=== PATIENT | male | born 1965 | race Caucasian/White ===

== ENCOUNTER 2016-02-20 11:55 | Emergency (ER) | payer OTHER ==
[2016-02-20] MEDS ORDERED: ONDANSETRON 4MG/2ML VIAL (J2405) As Ordered ONE (12:52)
[2016-02-20 13:24] LABS: BASO # 0.1 K/mm3 (0.0-0.2); BASO % 0.5 % (0.0-1.0); EOS # 4.2 K/mm3 (0.0-0.50); EOS % 36.6 % (0.0-3.0); LARGE UNSTAINED CELL # 0.2 K/mm3 (0.0-0.4); LARGE UNSTAINED CELL % 1.4 % (0.0-4.0); LYMPH # 2.1 K/mm3 (1.5-4.5); LYMPH % 18.5 % (24.0-44.0); MEAN CORPUSCULAR HEMOGLOBIN 30.1 pg (27.0-33.0); MEAN CORPUSCULAR HGB CONC 33.8 g/dl (32.0-36.5); MONO # 0.5 K/mm3 (0.0-0.8); MONO % 4.2 % (0.0-5.0); NEUTROPHILS # 4.4 K/mm3 (1.8-7.7); NEUTROPHILS % 38.8 % (36.0-66.0); PLATELET COUNT, AUTOMATED 291 k/mm3 (150-450); WHITE BLOOD COUNT 11.4 K/mm3 (4.0-10.0)
[2016-02-20 13:30] LABS: ALBUMIN 3.7 GM/DL (3.2-5.2); ALBUMIN/GLOBULIN RATIO 1.09 (1.00-1.93); ALKALINE PHOSPHATASE 134 U/L (45-117); ALT/SGPT 31 U/L (12-78); AMYLASE 51 U/L (25-115); ANION GAP 10 MEQ/L (8-16); AST/SGOT 27 U/L (15-37); BILIRUBIN,DIRECT 0.1 MG/DL (0.0-0.2); BILIRUBIN,TOTAL 0.9 MG/DL (0.2-1.0); BLOOD UREA NITROGEN 17 MG/DL (7-18); CARBON DIOXIDE LEVEL 22 MEQ/L (21-32); CHLORIDE LEVEL 111 MEQ/L (98-107); CREATININE FOR GFR 0.88 MG/DL (0.70-1.30); GLOMERULAR FILTRATION RATE > 60.0 (>56); GLUCOSE, FASTING 123 MG/DL (70-105); POTASSIUM SERUM 4.5 MEQ/L (3.5-5.1); SODIUM LEVEL 143 MEQ/L (136-145); TOTAL PROTEIN 7.1 GM/DL (6.4-8.2)
[2016-02-20] MEDS ORDERED: ISOVUE-370 76% 100ML VIAL (Q9967) As Ordered ONE (13:54)
--- NOTE | 2016-02-20 14:58 | REP ---
Clinical: Lower abdominal pain. Technique: Axial contrast enhanced images from the lung bases to the pubic symphysis using 100 ml Isovue 370 intravenous contrast material with coronal and sagittal re-formations. Findings: Fatty infiltration to the liver is appreciated without focal hepatic lesion identified. Spleen, pancreas, gallbladder, bilateral adrenal glands and kidneys are normal. The enteric system is without obstruction or acute inflammatory process. Scattered diverticula noted without acute diverticulitis. Normal terminal ileum and appendix identified in the right lower quadrant. Pelvis demonstrates normal bladder and age appropriate prostate/seminal vesicles. 2 cm fat containing periumbilical hernia noted. No ascites. No adenopathy. No free air. Abdominal aorta and vasculature normal. Musculoskeletal structures appear intact. Impression: No acute intra-abdominal or pelvic pathology appreciated. Fatty infiltration to the liver. Diverticula without acute diverticulitis. 2 cm fat containing periumbilical hernia. Signed by Jeffrey Sofia MD 02/20/2016 02:49 P
--- NOTE | 2016-02-20 18:03 | EDDOCDS ---
Physician Documentation [facility] Name: Denys Farfan Age: 50 yrs Sex: Male : 1965 Arrival Date: 02/20/2016 Time: 11:55 Bed TR8 Private MD: Michelle Stauffer A.NFrancisco Disposition: 02/20/16 17:06 Discharged to Home/Self Care. Impression: Nausea and vomiting, Diarrhea, unspecified. - Condition is Stable. - Discharge Instructions: Food Choices to Help Relieve Diarrhea, Adult, Diarrhea, Nausea and Vomiting. - Medication Reconciliation, Local Pharmacy Hours form. - Follow up: Michelle Stauffer; When: 2 - 3 days; Reason: Continuance of care. Follow up: Emergency Department; When: As needed; Reason: Worsening of conditions. - Problem is an ongoing problem. - Symptoms have improved. Historical: - Allergies: DONEPEZIL; - Home Meds: 1. ibuprofen 800 mg Oral tab 1 tab 3 times per day 2. metformin 1,000 mg Oral tab 1 tab 2 times per day 3. escitalopram oxalate 10 mg oral tab 1 tab once daily 4. Invokana 100 mg oral tab 1 tab once daily 5. tizanidine 4 mg oral cap 1 cap as needed 6. testerone gel 50mg daily 7. tanzeum 30mg weekly - PMHx: Diabetes - NIDDM: controlled; Jamil; - PSHx: left leg vein removal; bilateral inguinal hernia repair; - Social history: Smoking status: Patient/guardian denies using No barriers to communication noted, The patient speaks fluent Ecuadorean. - Family history: Not pertinent. - : The pt / caregiver states he / she is not on anticoagulants. Home medication list is obtained from the patient. - Exposure Risk Screening:: None identified. Vital Signs: 02/19 11:56 BP 110 / 70; Pulse 84; Resp 18 S; Temp 98.0(O); Pulse Ox 99% on R/A; Weight 89.36 kg / dd6 197.01 lbs (R); Height 5 ft. 11 in. (180.34 cm) (R); 17:18 BP 107 / 63; Pulse 66; Resp 20; Temp 97.1; Pulse Ox 96% ; Pain 0/10; jam1 11:56 Body Mass Index 27.48 (89.36 kg, 180.34 cm) dd6 MDM: 12:49 NS 0.9% 1000 ml IV at bolus once ordered. dk1 12:49 Ondansetron 4 mg IVP once ordered. dk1 12:49 Undress patient appropriately for examination ordered. dk1 12:49 Amylase Ordered. EDMS 12:49 Basic Metabolic Profile Ordered. EDMS 12:49 CBC with Diff Ordered. EDMS 12:49 Lipase Ordered. EDMS 12:49 Liver Profile Ordered. EDMS 12:51 NOTHING BY MOUTH+DIET ordered. EDMS 12:51 CT ABD & PELVIS: IV Contrast Only Ordered. EDMS 12:51 GASTROINTESTINAL (GI) PANEL Ordered. EDMS 14:06 [facility] Payment Agreement was scanned into [employer] and attached to record. jp5 14:06 Financial registration complete. jp5 15:04 Basic Metabolic Profile Reviewed. dk1 15:04 CBC with Diff Reviewed. dk1 15:04 Liver Profile Reviewed. dk1 15:04 Amylase Reviewed. dk1 15:04 Lipase Reviewed. dk1 17:04 CT ABD & PELVIS: IV Contrast Only Reviewed. dk1 Administered Medications: 13:03 Drug: NS 0.9% 1000 ml [sodium chloride 0.9 % intravenous solution] Route: IV; Rate: kr3 bolus; Site: left hand; 13:57 Follow up: IV Status: Completed infusion; IV Intake: 1000ml kr3 13:03 Not Given (Patient Refused): Ondansetron 4 mg IVP once kr3 Signatures: Dispatcher [facility] EDCA Yasmeen Kent RN RN dls Robie, Kathleen, RN RN kr3 Rosalio Wilson PA-C PA-C dk1 Yanelis MartinezRN RN [facility] Mahad Soliz jp5 The chart was reviewed and I authenticate all verbal orders and agree with the evaluation and treatment provided.Corrections: (The following items were deleted from the chart) 12:51 12:49 GASTROINTESTINAL (GI) PANEL+KANDACE ordered. EDMS EDMS Attachments: 14:06 [facility] Payment Agreement jp5 MTDD
--- NOTE | 2016-02-20 18:03 | EDDOCDS ---
Nurse's Notes [facility] Name: Denys Farfan Age: 50 yrs Sex: Male : 1965 Arrival Date: 02/20/2016 Time: 11:55 Bed TR8 Private MD: Michelle Stauffer A.N.P. Diagnosis: Nausea and vomiting;Diarrhea, unspecified Presentation: 02/19 12:00 Presenting complaint: Patient states: Pt presents with vomiting and diarrhea x 3 weeks dls vomiting improved but non stop diarrhea pt is diabetic. Adult Sepsis Screening: The patient does not have new or worsening altered mentation. Patient's respiratory rate is less than 22. Systolic blood pressure is greater than 100. Patient has a qSOFA score of 0- Negative Sepsis Screen. Suicide/Homicide risk assessment- the patient denies having any suicidal and/or homicidal ideations and does not present with any other emotional, behavioral or mental health complaints. Status: Patient is not a flight line service attendant or dependent. Transition of care: patient was not received from another setting of care. 12:00 Acuity: NAHUM Level 3 dls 12:00 Method Of Arrival: Walkin/Carried/Asstd dls Triage Assessment: 12:06 General: Appears uncomfortable, well developed, well nourished, Behavior is dls cooperative. Pain: Denies pain. HIV screening NA for this visit Offered previously. Historical: - Allergies: DONEPEZIL; - Home Meds: 1. ibuprofen 800 mg Oral tab 1 tab 3 times per day 2. metformin 1,000 mg Oral tab 1 tab 2 times per day 3. escitalopram oxalate 10 mg oral tab 1 tab once daily 4. Invokana 100 mg oral tab 1 tab once daily 5. tizanidine 4 mg oral cap 1 cap as needed 6. testerone gel 50mg daily 7. tanzeum 30mg weekly - PMHx: Diabetes - NIDDM: controlled; [place]; - PSHx: left leg vein removal; bilateral inguinal hernia repair; - Social history: Smoking status: Patient/guardian denies using No barriers to communication noted, The patient speaks fluent Argentine. - Family history: Not pertinent. - : The pt / caregiver states he / she is not on anticoagulants. Home medication list is obtained from the patient. - Exposure Risk Screening:: None identified. Screenin:03 Screening information is obtained from the patient. Fall risk: No risks identified. kr3 Assistance ADL's: requires no assistance with activities of daily living. Abuse/DV Screen: The patient / caregiver reports he/she is: not in a situation that causes fear, pain or injury. Nutritional screening: No deficits noted. Advance Directives: Currently, there is no health care proxy. home support is adequate. Assessment: 13:03 Reassessment: Patient appears in no apparent distress at this time. Pain: Denies pain. kr3 GI: Abdomen is non- distended Bowel sounds present X 4 quads. Abd is soft and non tender X 4 quads. Reports diarrhea, Denies nausea, vomiting. Derm: Skin is normal. 14:04 Reassessment: Patient appears in no apparent distress at this time. Neurological: No kr3 deficits noted. Respiratory: Respiratory effort is even, unlabored. GI: Reports unable to give stool spec, reports has only had 4 crackers today. 15:09 General: Appears in no apparent distress, comfortable, Behavior is appropriate for age, cj cooperative, denies pain, boxed lunch provided per request, denies other needs, will continue to monitor. 15:20 General:. cjh 17:26 General: Appears in no apparent distress, comfortable, Behavior is appropriate for age, cj cooperative, reviewed discharge instructions, encouraged and offered questions, patient denies pain, denies distress, denies needs and declines offers of additional assistance with discharge. Vital Signs: 11:56 BP 110 / 70; Pulse 84; Resp 18 S; Temp 98.0(O); Pulse Ox 99% on R/A; Weight 89.36 kg dd6 (R); Height 5 ft. 11 in. (180.34 cm) (R); 17:18 BP 107 / 63; Pulse 66; Resp 20; Temp 97.1; Pulse Ox 96% ; Pain 0/10; jam1 11:56 Body Mass Index 27.48 (89.36 kg, 180.34 cm) dd6 Vitals: 11:56 Log In Time: February 20, 2016 at 11:54. dd6 ED Course: 11:56 Patient visited by Peterson Pacheco PCA. dd6 11:56 Michelle Stauffer is Private Physician. dd6 11:56 Patient moved to Waiting dd6 11:57 Patient moved to Pre RCE dd6 12:01 Triage Initiated dls 12:11 Patient moved to Triage 2 kcs 12:41 Rosalio Wilson PA-C is PHCP. dk1 12:41 Chely Fitzpatrick MD is Attending Physician. dk1 12:45 Patient visited by Rosalio Wilson PA-C. dk1 12:49 Patient moved to I4 / M4 ct3 13:02 Amylase Sent. kr3 13:02 Basic Metabolic Profile Sent. kr3 13:03 CBC with Diff Sent. kr3 13:03 Lipase Sent. kr3 13:03 Liver Profile Sent. kr3 13:03 Inserted saline lock: 20 gauge in left hand and blood collected. The patient tolerated kr3 the procedure well. 13:56 Patient visited by Dina Farris RN. kr3 13:57 The patient / caregiver is instructed regarding the plan of care and ED course. Patient kr3 has correct armband on for positive identification. Placed in gown. Bed in low position. Call light in reach. Side rails up X 1. 14:06 [facility] Payment Agreement was scanned into [employer] and attached to record. 5 14:13 Patient visited by Yanelis Burleson PCA. jam1 14:17 Patient name changed from Denys\S\S\S\Adolph\S\ to Denys\S\Donte\S\Adolph. EDMS 15:15 Diet tray given. PO fluids given. jam1 15:18 CT ABD & PELVIS: IV Contrast Only Returned. EDMS 15:30 Patient visited by Yanelis Martinez RN. [facility] 16:54 Patient has correct armband on for positive identification. Bed in low position. Call [facility] light in reach. Side rails up X 1. Adult w/ patient. Door closed. PT SITTING ON SIDE OF BED AT THIS TIME COULD NOT GET US A SPECIEMEN (bowl) at this time. 17:06 Michelle Stauffer is Referral Physician. dk1 17:26 Patient moved to 8 [facility] 17:26 No procedures done that require assistance. [facility] Administered Medications: 13:03 Drug: NS 0.9% 1000 ml [sodium chloride 0.9 % intravenous solution] Route: IV; Rate: kr3 bolus; Site: left hand; 13:57 Follow up: IV Status: Completed infusion; IV Intake: 1000ml kr3 13:03 Not Given (Patient Refused): Ondansetron 4 mg IVP once kr3 Intake: 13:57 IV: 1000.00ml; Total: 1000.00ml. kr3 Order Results: Lab Order: Amylase; SPEC'M 02/20/16 13:01 Test: AMYLASE; Value: 51; Range: 25-115; Units: U/L; Status: F Lab Order: Basic Metabolic Profile; SPEC'M 02/20/16 13:01 Test: GLUCOSE, FASTING; Value: 123; Range: 70-105; Abnormal: Above high normal; Units: MG/DL; Status: F Test: BLOOD UREA NITROGEN; Value: 17; Range: 7-18; Units: MG/DL; Status: F Test: CREATININE FOR GFR; Value: 0.88; Range: 0.70-1.30; Units: MG/DL; Status: F Test: GLOMERULAR FILTRATION RATE; Value: > 60.0; Range: >56; Status: F Test: SODIUM LEVEL; Value: 143; Range: 136-145; Units: MEQ/L; Status: F Test: POTASSIUM SERUM; Value: 4.5; Range: 3.5-5.1; Units: MEQ/L; Status: F Test: CHLORIDE LEVEL; Value: 111; Range: 98-107; Abnormal: Above high normal; Units: MEQ/L; Status: F Test: CARBON DIOXIDE LEVEL; Value: 22; Range: 21-32; Units: MEQ/L; Status: F Test: ANION GAP; Value: 10; Range: 8-16; Units: MEQ/L; Status: F Test: CALCIUM LEVEL; Value: 9.0; Range: 8.5-10.1; Units: MG/DL; Status: F Test Note: ; Units are mL/min/1.73 m2 Chronic Kidney Disease Staging per NKF: Stage I & II GFR >=60 Normal to Mildly Decreased Stage III GFR 30-59 Moderately Decreased Stage IV GFR 15-29 Severely Decreased Stage V GFR <15 Very Little GFR Left ESRD GFR <15 on FILER METAL PATTERNS Lab Order: CBC with Diff; SPEC'M 02/20/16 13:01 Test: WHITE BLOOD COUNT; Value: 11.4; Range: 4.0-10.0; Abnormal: Above high normal; Units: K/mm3; Status: F Test: RED BLOOD COUNT; Value: 5.09; Range: 4.30-6.10; Units: M/mm3; Status: F Test: HEMOGLOBIN; Value: 15.3; Range: 14.0-18.0; Units: g/dl; Status: F Test: HEMATOCRIT; Value: 45.3; Range: 42.0-52.0; Units: %; Status: F Test: MEAN CORPUSCULAR VOLUME; Value: 89.0; Range: 80.0-96.0; Units: fl; Status: F Test: MEAN CORPUSCULAR HEMOGLOBIN; Value: 30.1; Range: 27.0-33.0; Units: pg; Status: F Test: MEAN CORPUSCULAR HGB CONC; Value: 33.8; Range: 32.0-36.5; Units: g/dl; Status: F Test: RED CELL DISTRIBUTION WIDTH; Value: 14.0; Range: 11.5-14.5; Units: %; Status: F Test: PLATELET COUNT, AUTOMATED; Value: 291; Range: 150-450; Units: k/mm3; Status: F Test: NEUTROPHILS %; Value: 38.8; Range: 36.0-66.0; Units: %; Status: F Test: LYMPH %; Value: 18.5; Range: 24.0-44.0; Abnormal: Below low normal; Units: %; Status: F Test: MONO %; Value: 4.2; Range: 0.0-5.0; Units: %; Status: F Test: EOS %; Value: 36.6; Range: 0.0-3.0; Abnormal: Above high normal; Units: %; Status: F Test: BASO %; Value: 0.5; Range: 0.0-1.0; Units: %; Status: F Test: LARGE UNSTAINED CELL %; Value: 1.4; Range: 0.0-4.0; Units: %; Status: F Test: NEUTROPHILS #; Value: 4.4; Range: 1.8-7.7; Units: K/mm3; Status: F Test: LYMPH #; Value: 2.1; Range: 1.5-4.5; Units: K/mm3; Status: F Test: MONO #; Value: 0.5; Range: 0.0-0.8; Units: K/mm3; Status: F Test: EOS #; Value: 4.2; Range: 0.0-0.50; Abnormal: Above high normal; Units: K/mm3; Status: F Test: BASO #; Value: 0.1; Range: 0.0-0.2; Units: K/mm3; Status: F Test: LARGE UNSTAINED CELL #; Value: 0.2; Range: 0.0-0.4; Units: K/mm3; Status: F Lab Order: Lipase; SPEC'M 02/20/16 13:01 Test: LIPASE; Value: 163; Range: 73-393; Units: U/L; Status: F Lab Order: Liver Profile; SPEC'M 02/20/16 13:01 Test: AST/SGOT; Value: 27; Range: 15-37; Units: U/L; Status: F Test: ALT/SGPT; Value: 31; Range: 12-78; Units: U/L; Status: F Test: ALKALINE PHOSPHATASE; Value: 134; Range: 45-117; Abnormal: Above high normal; Units: U/L; Status: F Test: BILIRUBIN,TOTAL; Value: 0.9; Range: 0.2-1.0; Units: MG/DL; Status: F Test: BILIRUBIN,DIRECT; Value: 0.1; Range: 0.0-0.2; Units: MG/DL; Status: F Test: TOTAL PROTEIN; Value: 7.1; Range: 6.4-8.2; Units: GM/DL; Status: F Test: ALBUMIN; Value: 3.7; Range: 3.2-5.2; Units: GM/DL; Status: F Test: ALBUMIN/GLOBULIN RATIO; Value: 1.09; Range: 1.00-1.93; Status: F Radiology Order: CT ABD & PELVIS: IV Contrast Only Test: CT ABD & PELVIS: IV Contrast Only REASON FOR EXAMINATION: Diverticulitis; Clinical: Lower abdominal pain.; ; Technique: Axial contrast enhanced images from the lung bases to the pubic; symphysis using 100 ml Isovue 370 intravenous contrast material with coronal and; sagittal re-formations.; ; Findings:; Fatty infiltration to the liver is appreciated without focal hepatic lesion; identified. Spleen, pancreas, gallbladder, bilateral adrenal glands and kidneys; are normal. The enteric system is without obstruction or acute inflammatory; process. Scattered diverticula noted without acute diverticulitis. Normal; terminal ileum and appendix identified in the right lower quadrant. Pelvis; demonstrates normal bladder and age appropriate prostate/seminal vesicles. 2 cm; fat containing periumbilical hernia noted. No ascites. No adenopathy. No free; air. Abdominal aorta and vasculature normal. Musculoskeletal structures appear; intact.; ; Impression:; No acute intra-abdominal or pelvic pathology appreciated.; Fatty infiltration to the liver.; Diverticula without acute diverticulitis.; 2 cm fat containing periumbilical hernia.; ; ; Signed by; Jeffrey Sofia MD 02/20/2016 02:49 P; Outcome: 13:57 CT Study completed. kr3 17:06 Discharge ordered by Provider. dk1 17:26 Discharge Assessment: Patient awake, alert and oriented x 3. No cognitive and/or [facility] functional deficits noted. Patient verbalized understanding of disposition instructions. patient administered narcotics - no. The following High Risk Discharge criteria are identified: None. Discharged to home ambulatory, with significant other. Condition: good Condition: stable Condition: improved. Discharge instructions given to patient, Instructed on discharge instructions, follow up and referral plans. Demonstrated understanding of instructions, Pt was receptive of discharge instructions/ teaching. Property :Personal belongings accompany Pt. 18:02 Patient left the ED. [facility] Signatures: Dispatcher [employer] EDMS Saba Mcdaniel, RN RN Yasmeen Mercado RN Yanelis Jovel, MEDICAL PHOTOGRAPHER MEDICAL PHOTOGRAPHER jam1 Dina FarrisRN RN jean paul3 Rosalio Wilson, PA-C PA-C dk1 Peterson Pacheco, MEDICAL PHOTOGRAPHER MEDICAL PHOTOGRAPHER dd6 Lily Armstrong, MEDICAL PHOTOGRAPHER MEDICAL PHOTOGRAPHER ct3 Yanelis Martinez,RN ISABEL [facility] Mahad Soliz jp5 MTDD
--- NOTE | 2016-02-22 19:04 | EDDOCDS ---
Physician Documentation [facility] Name: Denys Farfan Age: 50 yrs Sex: Male : 1965 Arrival Date: 02/20/2016 Time: 11:55 Bed TR8 Private MD: Michelle Stauffer A.NFrancisco Disposition: 02/20/16 17:06 Discharged to Home/Self Care. Impression: Nausea and vomiting, Diarrhea, unspecified. - Condition is Stable. - Discharge Instructions: Food Choices to Help Relieve Diarrhea, Adult, Diarrhea, Nausea and Vomiting. - Medication Reconciliation, Local Pharmacy Hours form. - Follow up: Michelle Stauffer; When: 2 - 3 days; Reason: Continuance of care. Follow up: Emergency Department; When: As needed; Reason: Worsening of conditions. - Problem is an ongoing problem. - Symptoms have improved. Historical: - Allergies: DONEPEZIL; - Home Meds: 1. ibuprofen 800 mg Oral tab 1 tab 3 times per day 2. metformin 1,000 mg Oral tab 1 tab 2 times per day 3. escitalopram oxalate 10 mg oral tab 1 tab once daily 4. Invokana 100 mg oral tab 1 tab once daily 5. tizanidine 4 mg oral cap 1 cap as needed 6. testerone gel 50mg daily 7. tanzeum 30mg weekly - PMHx: Diabetes - NIDDM: controlled; Jamil; - PSHx: left leg vein removal; bilateral inguinal hernia repair; - Social history: Smoking status: Patient/guardian denies using No barriers to communication noted, The patient speaks fluent Turkmen. - Family history: Not pertinent. - : The pt / caregiver states he / she is not on anticoagulants. Home medication list is obtained from the patient. - Exposure Risk Screening:: None identified. Vital Signs: 02/19 11:56 BP 110 / 70; Pulse 84; Resp 18 S; Temp 98.0(O); Pulse Ox 99% on R/A; Weight 89.36 kg / dd6 197.01 lbs (R); Height 5 ft. 11 in. (180.34 cm) (R); 17:18 BP 107 / 63; Pulse 66; Resp 20; Temp 97.1; Pulse Ox 96% ; Pain 0/10; jam1 11:56 Body Mass Index 27.48 (89.36 kg, 180.34 cm) dd6 MDM: 12:49 NS 0.9% 1000 ml IV at bolus once ordered. dk1 12:49 Ondansetron 4 mg IVP once ordered. dk1 12:49 Undress patient appropriately for examination ordered. dk1 12:49 Amylase Ordered. EDMS 12:49 Basic Metabolic Profile Ordered. EDMS 12:49 CBC with Diff Ordered. EDMS 12:49 Lipase Ordered. EDMS 12:49 Liver Profile Ordered. EDMS 12:51 NOTHING BY MOUTH+DIET ordered. EDMS 12:51 CT ABD & PELVIS: IV Contrast Only Ordered. EDMS 12:51 GASTROINTESTINAL (GI) PANEL Ordered. EDMS 14:06 [facility] Payment Agreement was scanned into [employer] and attached to record. jp5 14: Financial registration complete. jp5 15:04 Basic Metabolic Profile Reviewed. dk1 15:04 CBC with Diff Reviewed. dk1 15:04 Liver Profile Reviewed. dk1 15:04 Amylase Reviewed. dk1 15:04 Lipase Reviewed. dk1 17:04 CT ABD & PELVIS: IV Contrast Only Reviewed. dk1 02/20 06:04 T-Sheet-- Draft Copy was scanned into [employer] and attached to record. lja Administered Medications: 02/19 13:03 Drug: NS 0.9% 1000 ml [sodium chloride 0.9 % intravenous solution] Route: IV; Rate: kr3 bolus; Site: left hand; 13:57 Follow up: IV Status: Completed infusion; IV Intake: 1000ml kr3 13:03 Not Given (Patient Refused): Ondansetron 4 mg IVP once kr3 Signatures: Dispatcher [employer]K Yasmeen Kent RN RN dls Robie, Kathleen, RN RN kr3 Rosalio Wilson PA-C PA-C dk1 Yanelis Martinez RN RN [facility] [place], Mahad Reece jp5 The chart was reviewed and I authenticate all verbal orders and agree with the evaluation and treatment provided.Corrections: (The following items were deleted from the chart) 12:51 12:49 GASTROINTESTINAL (GI) PANEL+KANDACE ordered. EDMS EDMS Attachments: 14:06 [facility] Payment Agreement jp5 02/20 06:04 T-Sheet-- Draft Copy ljnitin Chart Complete MTDD
--- NOTE | 2016-02-22 19:04 | EDDOCDS ---
Nurse's Notes [facility] Name: Denys Farfan Age: 50 yrs Sex: Male : 1965 Arrival Date: 02/20/2016 Time: 11:55 Bed TR8 Private MD: Michelle Stauffer A.N.P. Diagnosis: Nausea and vomiting;Diarrhea, unspecified Presentation: 02/19 12:00 Presenting complaint: Patient states: Pt presents with vomiting and diarrhea x 3 weeks dls vomiting improved but non stop diarrhea pt is diabetic. Adult Sepsis Screening: The patient does not have new or worsening altered mentation. Patient's respiratory rate is less than 22. Systolic blood pressure is greater than 100. Patient has a qSOFA score of 0- Negative Sepsis Screen. Suicide/Homicide risk assessment- the patient denies having any suicidal and/or homicidal ideations and does not present with any other emotional, behavioral or mental health complaints. Status: Patient is not a donor services specialist or dependent. Transition of care: patient was not received from another setting of care. 12:00 Acuity: NAHUM Level 3 dls 12:00 Method Of Arrival: Walkin/Carried/Asstd dls Triage Assessment: 12:06 General: Appears uncomfortable, well developed, well nourished, Behavior is dls cooperative. Pain: Denies pain. HIV screening NA for this visit Offered previously. Historical: - Allergies: DONEPEZIL; - Home Meds: 1. ibuprofen 800 mg Oral tab 1 tab 3 times per day 2. metformin 1,000 mg Oral tab 1 tab 2 times per day 3. escitalopram oxalate 10 mg oral tab 1 tab once daily 4. Invokana 100 mg oral tab 1 tab once daily 5. tizanidine 4 mg oral cap 1 cap as needed 6. testerone gel 50mg daily 7. tanzeum 30mg weekly - PMHx: Diabetes - NIDDM: controlled; [place]; - PSHx: left leg vein removal; bilateral inguinal hernia repair; - Social history: Smoking status: Patient/guardian denies using No barriers to communication noted, The patient speaks fluent Cape Verdean. - Family history: Not pertinent. - : The pt / caregiver states he / she is not on anticoagulants. Home medication list is obtained from the patient. - Exposure Risk Screening:: None identified. Screenin:03 Screening information is obtained from the patient. Fall risk: No risks identified. kr3 Assistance ADL's: requires no assistance with activities of daily living. Abuse/DV Screen: The patient / caregiver reports he/she is: not in a situation that causes fear, pain or injury. Nutritional screening: No deficits noted. Advance Directives: Currently, there is no health care proxy. home support is adequate. Assessment: 13:03 Reassessment: Patient appears in no apparent distress at this time. Pain: Denies pain. kr3 GI: Abdomen is non- distended Bowel sounds present X 4 quads. Abd is soft and non tender X 4 quads. Reports diarrhea, Denies nausea, vomiting. Derm: Skin is normal. 14:04 Reassessment: Patient appears in no apparent distress at this time. Neurological: No kr3 deficits noted. Respiratory: Respiratory effort is even, unlabored. GI: Reports unable to give stool spec, reports has only had 4 crackers today. 15:09 General: Appears in no apparent distress, comfortable, Behavior is appropriate for age, cj cooperative, denies pain, boxed lunch provided per request, denies other needs, will continue to monitor. 15:20 General:. cjh 17:26 General: Appears in no apparent distress, comfortable, Behavior is appropriate for age, cj cooperative, reviewed discharge instructions, encouraged and offered questions, patient denies pain, denies distress, denies needs and declines offers of additional assistance with discharge. Vital Signs: 11:56 BP 110 / 70; Pulse 84; Resp 18 S; Temp 98.0(O); Pulse Ox 99% on R/A; Weight 89.36 kg dd6 (R); Height 5 ft. 11 in. (180.34 cm) (R); 17:18 BP 107 / 63; Pulse 66; Resp 20; Temp 97.1; Pulse Ox 96% ; Pain 0/10; jam1 11:56 Body Mass Index 27.48 (89.36 kg, 180.34 cm) dd6 Vitals: 11:56 Log In Time: February 20, 2016 at 11:54. dd6 ED Course: 11:56 Patient visited by Peterson Pacheco PCA. dd6 11:56 Michelle Stauffer is Private Physician. dd6 11:56 Patient moved to Waiting dd6 11:57 Patient moved to Pre RCE dd6 12:01 Triage Initiated dls 12:11 Patient moved to Triage 2 kcs 12:41 Rosalio Wilson PA-C is PHCP. dk1 12:41 Chely Fitzpatrick MD is Attending Physician. dk1 12:45 Patient visited by Rosalio Wilson PA-C. dk1 12:49 Patient moved to I4 / M4 ct3 13:02 Amylase Sent. kr3 13:02 Basic Metabolic Profile Sent. kr3 13:03 CBC with Diff Sent. kr3 13:03 Lipase Sent. kr3 13:03 Liver Profile Sent. kr3 13:03 Inserted saline lock: 20 gauge in left hand and blood collected. The patient tolerated kr3 the procedure well. 13:56 Patient visited by Dina Farris RN. kr3 13:57 The patient / caregiver is instructed regarding the plan of care and ED course. Patient kr3 has correct armband on for positive identification. Placed in gown. Bed in low position. Call light in reach. Side rails up X 1. 14:06 [facility] Payment Agreement was scanned into [employer] and attached to record. jp5 14:13 Patient visited by Yanelis Burleson PCA. jam1 14:17 Patient name changed from Denys\S\S\S\Adolph\S\ to Denys\S\Donte\S\Adolph. EDMS 15:15 Diet tray given. PO fluids given. jam1 15:18 CT ABD & PELVIS: IV Contrast Only Returned. EDMS 15:30 Patient visited by Yanelis Martinez RN. [facility] 16:54 Patient has correct armband on for positive identification. Bed in low position. Call [facility] light in reach. Side rails up X 1. Adult w/ patient. Door closed. PT SITTING ON SIDE OF BED AT THIS TIME COULD NOT GET US A SPECIEMEN (bowl) at this time. 17:06 Michelle Stauffer is Referral Physician. dk1 17:26 Patient moved to TR8 [facility] 17:26 No procedures done that require assistance. [facility] 02/20 06:04 T-Sheet-- Draft Copy was scanned into [employer] and attached to record. lja Administered Medications: 02/19 13:03 Drug: NS 0.9% 1000 ml [sodium chloride 0.9 % intravenous solution] Route: IV; Rate: kr3 bolus; Site: left hand; 13:57 Follow up: IV Status: Completed infusion; IV Intake: 1000ml kr3 13:03 Not Given (Patient Refused): Ondansetron 4 mg IVP once kr3 Intake: 13:57 IV: 1000.00ml; Total: 1000.00ml. kr3 Order Results: Lab Order: Amylase; SPEC' 02/20/16 13:01 Test: AMYLASE; Value: 51; Range: 25-115; Units: U/L; Status: F Lab Order: Basic Metabolic Profile; SPEC' 02/20/16 13:01 Test: GLUCOSE, FASTING; Value: 123; Range: 70-105; Abnormal: Above high normal; Units: MG/DL; Status: F Test: BLOOD UREA NITROGEN; Value: 17; Range: 7-18; Units: MG/DL; Status: F Test: CREATININE FOR GFR; Value: 0.88; Range: 0.70-1.30; Units: MG/DL; Status: F Test: GLOMERULAR FILTRATION RATE; Value: > 60.0; Range: >56; Status: F Test: SODIUM LEVEL; Value: 143; Range: 136-145; Units: MEQ/L; Status: F Test: POTASSIUM SERUM; Value: 4.5; Range: 3.5-5.1; Units: MEQ/L; Status: F Test: CHLORIDE LEVEL; Value: 111; Range: 98-107; Abnormal: Above high normal; Units: MEQ/L; Status: F Test: CARBON DIOXIDE LEVEL; Value: 22; Range: 21-32; Units: MEQ/L; Status: F Test: ANION GAP; Value: 10; Range: 8-16; Units: MEQ/L; Status: F Test: CALCIUM LEVEL; Value: 9.0; Range: 8.5-10.1; Units: MG/DL; Status: F Test Note: ; Units are mL/min/1.73 m2 Chronic Kidney Disease Staging per NKF: Stage I & II GFR >=60 Normal to Mildly Decreased Stage III GFR 30-59 Moderately Decreased Stage IV GFR 15-29 Severely Decreased Stage V GFR <15 Very Little GFR Left ESRD GFR <15 on AUT[employer] SAFETY PROGRAM COORDINATOR Lab Order: CBC with Diff; SPEC'02/20/16 13:01 Test: WHITE BLOOD COUNT; Value: 11.4; Range: 4.0-10.0; Abnormal: Above high normal; Units: K/mm3; Status: F Test: RED BLOOD COUNT; Value: 5.09; Range: 4.30-6.10; Units: M/mm3; Status: F Test: HEMOGLOBIN; Value: 15.3; Range: 14.0-18.0; Units: g/dl; Status: F Test: HEMATOCRIT; Value: 45.3; Range: 42.0-52.0; Units: %; Status: F Test: MEAN CORPUSCULAR VOLUME; Value: 89.0; Range: 80.0-96.0; Units: fl; Status: F Test: MEAN CORPUSCULAR HEMOGLOBIN; Value: 30.1; Range: 27.0-33.0; Units: pg; Status: F Test: MEAN CORPUSCULAR HGB CONC; Value: 33.8; Range: 32.0-36.5; Units: g/dl; Status: F Test: RED CELL DISTRIBUTION WIDTH; Value: 14.0; Range: 11.5-14.5; Units: %; Status: F Test: PLATELET COUNT, AUTOMATED; Value: 291; Range: 150-450; Units: k/mm3; Status: F Test: NEUTROPHILS %; Value: 38.8; Range: 36.0-66.0; Units: %; Status: F Test: LYMPH %; Value: 18.5; Range: 24.0-44.0; Abnormal: Below low normal; Units: %; Status: F Test: MONO %; Value: 4.2; Range: 0.0-5.0; Units: %; Status: F Test: EOS %; Value: 36.6; Range: 0.0-3.0; Abnormal: Above high normal; Units: %; Status: F Test: BASO %; Value: 0.5; Range: 0.0-1.0; Units: %; Status: F Test: LARGE UNSTAINED CELL %; Value: 1.4; Range: 0.0-4.0; Units: %; Status: F Test: NEUTROPHILS #; Value: 4.4; Range: 1.8-7.7; Units: K/mm3; Status: F Test: LYMPH #; Value: 2.1; Range: 1.5-4.5; Units: K/mm3; Status: F Test: MONO #; Value: 0.5; Range: 0.0-0.8; Units: K/mm3; Status: F Test: EOS #; Value: 4.2; Range: 0.0-0.50; Abnormal: Above high normal; Units: K/mm3; Status: F Test: BASO #; Value: 0.1; Range: 0.0-0.2; Units: K/mm3; Status: F Test: LARGE UNSTAINED CELL #; Value: 0.2; Range: 0.0-0.4; Units: K/mm3; Status: F Lab Order: Lipase; SPEC'M 02/20/16 13:01 Test: LIPASE; Value: 163; Range: 73-393; Units: U/L; Status: F Lab Order: Liver Profile; SPEC'M 02/20/16 13:01 Test: AST/SGOT; Value: 27; Range: 15-37; Units: U/L; Status: F Test: ALT/SGPT; Value: 31; Range: 12-78; Units: U/L; Status: F Test: ALKALINE PHOSPHATASE; Value: 134; Range: 45-117; Abnormal: Above high normal; Units: U/L; Status: F Test: BILIRUBIN,TOTAL; Value: 0.9; Range: 0.2-1.0; Units: MG/DL; Status: F Test: BILIRUBIN,DIRECT; Value: 0.1; Range: 0.0-0.2; Units: MG/DL; Status: F Test: TOTAL PROTEIN; Value: 7.1; Range: 6.4-8.2; Units: GM/DL; Status: F Test: ALBUMIN; Value: 3.7; Range: 3.2-5.2; Units: GM/DL; Status: F Test: ALBUMIN/GLOBULIN RATIO; Value: 1.09; Range: 1.00-1.93; Status: F Radiology Order: CT ABD & PELVIS: IV Contrast Only Test: CT ABD & PELVIS: IV Contrast Only REASON FOR EXAMINATION: Diverticulitis; Clinical: Lower abdominal pain.; ; Technique: Axial contrast enhanced images from the lung bases to the pubic; symphysis using 100 ml Isovue 370 intravenous contrast material with coronal and; sagittal re-formations.; ; Findings:; Fatty infiltration to the liver is appreciated without focal hepatic lesion; identified. Spleen, pancreas, gallbladder, bilateral adrenal glands and kidneys; are normal. The enteric system is without obstruction or acute inflammatory; process. Scattered diverticula noted without acute diverticulitis. Normal; terminal ileum and appendix identified in the right lower quadrant. Pelvis; demonstrates normal bladder and age appropriate prostate/seminal vesicles. 2 cm; fat containing periumbilical hernia noted. No ascites. No adenopathy. No free; air. Abdominal aorta and vasculature normal. Musculoskeletal structures appear; intact.; ; Impression:; No acute intra-abdominal or pelvic pathology appreciated.; Fatty infiltration to the liver.; Diverticula without acute diverticulitis.; 2 cm fat containing periumbilical hernia.; ; ; Signed by; Jeffrey Sofia MD 02/20/2016 02:49 P; Outcome: 13:57 CT Study completed. kr3 17:06 Discharge ordered by Provider. dk1 17:26 Discharge Assessment: Patient awake, alert and oriented x 3. No cognitive and/or [facility] functional deficits noted. Patient verbalized understanding of disposition instructions. patient administered narcotics - no. The following High Risk Discharge criteria are identified: None. Discharged to home ambulatory, with significant other. Condition: good Condition: stable Condition: improved. Discharge instructions given to patient, Instructed on discharge instructions, follow up and referral plans. Demonstrated understanding of instructions, Pt was receptive of discharge instructions/ teaching. Property :Personal belongings accompany Pt. 18:02 Patient left the ED. [facility] Signatures: Dispatcher [employer] EDMS Saba Mcdaniel RN RN kcs Scott, Debra RN Yanelis Jovel, SEVERITY OF ILLNESS COORDINATOR SEVERITY OF ILLNESS COORDINATOR [email or web address] Dina Farris RN RN kr3 Rosalio Wilson, PA-Joy PA-C dk1 Peterson Pacheco, SEVERITY OF ILLNESS COORDINATOR SEVERITY OF ILLNESS COORDINATOR dd6 Lily Armstrong, SEVERITY OF ILLNESS COORDINATOR SEVERITY OF ILLNESS COORDINATOR ct3 Yanelis MartinezRN RN [facility] Marzena, Mahad Reece jp5 Chart Complete MTDD
--- NOTE | 2016-02-22 19:04 | EDDOCDS ---
Physician Documentation [facility] Name: Denys Farfan Age: 50 yrs Sex: Male : 1965 Arrival Date: 02/20/2016 Time: 11:55 Bed TR8 Private MD: Michelle Stauffer A.NFrancisco Disposition: 02/20/16 17:06 Discharged to Home/Self Care. Impression: Nausea and vomiting, Diarrhea, unspecified. - Condition is Stable. - Discharge Instructions: Food Choices to Help Relieve Diarrhea, Adult, Diarrhea, Nausea and Vomiting. - Medication Reconciliation, Local Pharmacy Hours form. - Follow up: Michelle Stauffer; When: 2 - 3 days; Reason: Continuance of care. Follow up: Emergency Department; When: As needed; Reason: Worsening of conditions. - Problem is an ongoing problem. - Symptoms have improved. Historical: - Allergies: DONEPEZIL; - Home Meds: 1. ibuprofen 800 mg Oral tab 1 tab 3 times per day 2. metformin 1,000 mg Oral tab 1 tab 2 times per day 3. escitalopram oxalate 10 mg oral tab 1 tab once daily 4. Invokana 100 mg oral tab 1 tab once daily 5. tizanidine 4 mg oral cap 1 cap as needed 6. testerone gel 50mg daily 7. tanzeum 30mg weekly - PMHx: Diabetes - NIDDM: controlled; Jamil; - PSHx: left leg vein removal; bilateral inguinal hernia repair; - Social history: Smoking status: Patient/guardian denies using No barriers to communication noted, The patient speaks fluent Sudanese. - Family history: Not pertinent. - : The pt / caregiver states he / she is not on anticoagulants. Home medication list is obtained from the patient. - Exposure Risk Screening:: None identified. Vital Signs: 02/19 11:56 BP 110 / 70; Pulse 84; Resp 18 S; Temp 98.0(O); Pulse Ox 99% on R/A; Weight 89.36 kg / dd6 197.01 lbs (R); Height 5 ft. 11 in. (180.34 cm) (R); 17:18 BP 107 / 63; Pulse 66; Resp 20; Temp 97.1; Pulse Ox 96% ; Pain 0/10; jam1 11:56 Body Mass Index 27.48 (89.36 kg, 180.34 cm) dd6 MDM: 12:49 NS 0.9% 1000 ml IV at bolus once ordered. dk1 12:49 Ondansetron 4 mg IVP once ordered. dk1 12:49 Undress patient appropriately for examination ordered. dk1 12:49 Amylase Ordered. EDMS 12:49 Basic Metabolic Profile Ordered. EDMS 12:49 CBC with Diff Ordered. EDMS 12:49 Lipase Ordered. EDMS 12:49 Liver Profile Ordered. EDMS 12:51 NOTHING BY MOUTH+DIET ordered. EDMS 12:51 CT ABD & PELVIS: IV Contrast Only Ordered. EDMS 12:51 GASTROINTESTINAL (GI) PANEL Ordered. EDMS 14:06 [facility] Payment Agreement was scanned into [employer] and attached to record. jp5 14: Financial registration complete. jp5 15:04 Basic Metabolic Profile Reviewed. dk1 15:04 CBC with Diff Reviewed. dk1 15:04 Liver Profile Reviewed. dk1 15:04 Amylase Reviewed. dk1 15:04 Lipase Reviewed. dk1 17:04 CT ABD & PELVIS: IV Contrast Only Reviewed. dk1 02/20 06:04 T-Sheet-- Draft Copy was scanned into [employer] and attached to record. lja Administered Medications: 02/19 13:03 Drug: NS 0.9% 1000 ml [sodium chloride 0.9 % intravenous solution] Route: IV; Rate: kr3 bolus; Site: left hand; 13:57 Follow up: IV Status: Completed infusion; IV Intake: 1000ml kr3 13:03 Not Given (Patient Refused): Ondansetron 4 mg IVP once kr3 Signatures: Dispatcher [employer] EDNY Yasmeen Kent RN RN dls Robie, Kathleen, RN RN kr3 Rosalio Wilson PA-C PA-C dk1 Yanelis Martinez RN RN [facility] [place], Mahad Reece jp5 The chart was reviewed and I authenticate all verbal orders and agree with the evaluation and treatment provided.Corrections: (The following items were deleted from the chart) 12:51 12:49 GASTROINTESTINAL (GI) PANEL+KANDACE ordered. EDMS EDMS Attachments: 14:06 [facility] Payment Agreement jp5 02/20 06:04 T-Sheet-- Draft Copy ljnitin Chart Complete MTDD
== END 2016-02-20 18:02 | disposition home or self-care (01) ==
LOC: M ED 11:55
DX: R11.10 Vomiting, unspecified (principal); R19.7 Diarrhea, unspecified; K76.0 Fatty (change of) liver, not elsewhere classified; K57.90 Diverticulosis of intestine, part unspecified, without perforation or abscess without bleeding; K42.9 Umbilical hernia without obstruction or gangrene; E11.9 Type 2 diabetes mellitus without complications; Q98.4 Klinefelter syndrome, unspecified; Z79.899 Other long term (current) drug therapy; Z88.8 Allergy status to other drugs, medicaments and biological substances
CPT/HCPCS: 36415; 74177; 80048; 80076; 82150; 83690; 85025; 96360; 99284; Q9967

== ENCOUNTER → 2016-02-23 | Outpatient (REF) | payer OTHER ==
[2016-02-23 17:31] LABS: ANION GAP 11 MEQ/L (8-16); BLOOD UREA NITROGEN 24 MG/DL (7-18); CALCIUM LEVEL 9.5 MG/DL (8.5-10.1); CARBON DIOXIDE LEVEL 25 MEQ/L (21-32); CHLORIDE LEVEL 107 MEQ/L (98-107); CHOLESTEROL LEVEL 204 MG/DL (<200); CREATININE FOR GFR 1.11 MG/DL (0.70-1.30); GLOMERULAR FILTRATION RATE > 60.0 (>56); GLUCOSE, FASTING 133 MG/DL (70-105); SODIUM LEVEL 143 MEQ/L (136-145); TRIGLYCERIDES LEVEL 150 MG/DL (<150)
== END ==
LOC: M LABDRWCV 16:21
PROVIDERS: ATTEND Physician Assistant Medical
DX: E11.65 Type 2 diabetes mellitus with hyperglycemia (principal); E78.1 Pure hyperglyceridemia; Q98.0 Klinefelter syndrome karyotype 47, XXY

== ENCOUNTER → 2016-05-16 | Outpatient (CLI) | payer OTHER ==
[~2016-05-16] VITALS: Ht 177.8 cm; Wt 94.3 kg
[~2016-05-16] MED LIST: ANDR1GEL TD; IBUP-1114 PO; INVO100T PO; LEXA1TAB PO; LIDOCAINE 2% INJ 100 MG/5 ML SDV (FOR ANES.) As Ordered ONE; METF1000 PO; NS 1,000 ML IV SCH; PROPOFOL 200 MG/20 ML VIAL As Ordered ONE; TANZ1INJ SC; TIZA4CAP3 PO; ZYRT10CA PO
--- NOTE | 2016-05-16 08:14 | ROOR ---
Patient Name: Denys Farfan Procedure Date: 05/16/2016 7:26 AM Date of : 1965 Age: 51 Room: [facility] Gender: Male Note Status: Finalized Procedure: Colonoscopy Indications: Screening for colorectal malignant neoplasm Providers: Sergio Pearson MD Referring MD: DAVID MCKEON Requesting Provider: Medicines: Monitored Anesthesia Care Complications: No immediate complications. Procedure: Pre-Anesthesia Assessment: - Prior to the procedure, a History and Physical was performed, and patient medications and allergies were reviewed. The patient is competent. The risks and benefits of the procedure and the sedation options and risks were discussed with the patient. All questions were answered and informed consent was obtained. Patient identification and proposed procedure were verified by the physician, the nurse and the anesthesiologist in the endoscopy suite. Mental Status Examination: alert and oriented. Airway Examination: normal oropharyngeal airway and neck mobility. Respiratory Examination: clear to auscultation. CV Examination: normal. Prophylactic Antibiotics: The patient does not require prophylactic antibiotics. Prior Anticoagulants: The patient has taken no previous anticoagulant or antiplatelet agents. ASA Grade Assessment: III - A patient with severe systemic disease. After reviewing the risks and benefits, the patient was deemed in satisfactory condition to undergo the procedure. The anesthesia plan was to use moderate sedation / analgesia (conscious sedation). Immediately prior to administration of medications, the patient was re-assessed for adequacy to receive sedatives. The heart rate, respiratory rate, oxygen saturations, blood pressure, adequacy of pulmonary ventilation, and response to care were monitored throughout the procedure. The physical status of the patient was re-assessed after the procedure. The Colonoscope was introduced through the anus and advanced to the cecum, identified by appendiceal orifice and ileocecal valve. The colonoscopy was technically difficult and complex due to a tortuous colon. The patient tolerated the procedure well. Findings: The perianal exam findings include non-thrombosed external hemorrhoids. A few small-mouthed diverticula were found in the sigmoid colon. The entire examined colon appeared normal. Impression: - Non-thrombosed external hemorrhoids found on perianal exam. - Diverticulosis in the sigmoid colon. - The entire examined colon is normal. - No specimens collected. - The distal rectum and anal verge are normal on retroflexion view. Recommendation: - Discharge patient to home (ambulatory). - High fiber diet. - Repeat colonoscopy in 7 years for screening purposes. Sergio Pearson MD Sergio Pearson MD 05/16/2016 8:13:51 AM This report has been signed electronically. Number of Addenda: 0 Note Initiated On: 05/16/2016 7:26 AM Estimated Blood Loss: Estimated blood loss: none.
[2016-05-16 08:32] VITALS: BP 106/73
== END | disposition home or self-care (01) ==
LOC: M OPP 06:43
PROVIDERS: ATTEND Surgery
DX: Z12.11 Encounter for screening for malignant neoplasm of colon (principal); K64.4 Residual hemorrhoidal skin tags; K57.30 Diverticulosis of large intestine without perforation or abscess without bleeding; E78.00 Pure hypercholesterolemia, unspecified; E11.9 Type 2 diabetes mellitus without complications; R12 Heartburn; F33.9 Major depressive disorder, recurrent, unspecified; F41.9 Anxiety disorder, unspecified; G47.30 Sleep apnea, unspecified; Q98.4 Klinefelter syndrome, unspecified; Z79.899 Other long term (current) drug therapy; Z79.84 Long term (current) use of oral hypoglycemic drugs; Z79.1 Long term (current) use of non-steroidal anti-inflammatories (NSAID); Z88.0 Allergy status to penicillin

== ENCOUNTER → 2016-08-02 | Outpatient (REF) | payer MEDICAID, OTHER ==
[~2016-08-02] MED LIST changes: -LIDOCAINE 2% INJ 100 MG/5 ML SDV (FOR ANES.) As Ordered ONE; -NS 1,000 ML IV SCH; -PROPOFOL 200 MG/20 ML VIAL As Ordered ONE
[2016-08-02 17:58] LABS: ALBUMIN 3.7 GM/DL (3.2-5.2); ALBUMIN/GLOBULIN RATIO 1.42 (1.00-1.93); ALKALINE PHOSPHATASE 97 U/L (45-117); ALT/SGPT 36 U/L (12-78); ANION GAP 10 MEQ/L (8-16); AST/SGOT 23 U/L (15-37); BILIRUBIN,TOTAL 0.5 MG/DL (0.2-1.0); BLOOD UREA NITROGEN 20 MG/DL (7-18); CALCIUM LEVEL 8.6 MG/DL (8.5-10.1); CARBON DIOXIDE LEVEL 21 MEQ/L (21-32); CHLORIDE LEVEL 107 MEQ/L (98-107); CHOLESTEROL LEVEL 170 MG/DL (<200); CREATININE FOR GFR 0.93 MG/DL (0.70-1.30); FREE T4 0.84 NG/DL (0.76-1.46); GLOMERULAR FILTRATION RATE > 60.0 (>56); GLUCOSE, FASTING 192 MG/DL (70-105); POTASSIUM SERUM 3.9 MEQ/L (3.5-5.1); SODIUM LEVEL 138 MEQ/L (136-145); TOTAL PROTEIN 6.3 GM/DL (6.4-8.2); TRIGLYCERIDES LEVEL 226 MG/DL (<150)
[2016-08-02 19:15] LABS: MEAN CORPUSCULAR HEMOGLOBIN 30.7 pg (27.0-33.0); MEAN CORPUSCULAR HGB CONC 33.4 g/dl (32.0-36.5); MEAN CORPUSCULAR VOLUME 91.7 fl (80.0-96.0); PLATELET COUNT, AUTOMATED 264 k/mm3 (150-450); RED CELL DISTRIBUTION WIDTH 13.7 % (11.5-14.5); WHITE BLOOD COUNT 8.6 K/mm3 (4.0-10.0)
[2016-08-02 19:58] LABS: BANDS 1 % (< 11); BASOPHILS 3 % (0-4); EOSINOPHILS 6 % (0-5)
== END ==
LOC: M SFHCCAPE 07:56
PROVIDERS: ATTEND Physician Assistant
DX: E78.2 Mixed hyperlipidemia (principal); E11.9 Type 2 diabetes mellitus without complications; F32.9 Major depressive disorder, single episode, unspecified

== ENCOUNTER → 2016-10-30 | Outpatient (CLI) | payer OTHER, MEDICAID ==
[~2016-10-30] MED LIST changes: +ALBU83IN INH; -METF1000 PO; +METF10004 PO; +PRED20TA PO
--- NOTE | 2016-10-30 10:31 | REP ---
Clinical: Cough . Comparison: None . Technique: PA and lateral. Findings: The mediastinum and cardiac silhouette are normal. The lung freeman are clear and without acute consolidation, effusion, or pneumothorax. The skeletal structures are intact and normal. Impression: 1. No acute cardiopulmonary process.
== END ==
LOC: M CLY 09:58
PROVIDERS: ATTEND Physician Assistant
DX: R05 Cough (principal)

== ENCOUNTER 2016-11-02 23:44 | Emergency (ER) | payer OTHER, MEDICAID ==
[~2016-11-02] VITALS: Ht 180.3 cm; Wt 101.4 kg
[~2016-11-02 23:44] MED LIST changes: -ALBU83IN INH; -PRED20TA PO
[2016-11-03] MEDS ORDERED: ALBU83IN INH (00:36)
[2016-11-03] MEDS ORDERED: IPRATROPIUM 0.5MG/ALBUTEROL 2.5MG INH SOL UD 3ML (DUONEB)(J7620) NEB ONE (01:15)
[2016-11-03] MEDS ORDERED: ALBUTEROL SULFATE 2.5 MG/0.5 ML INH NEB SOLN NEB ONE ×2 (01:15→02:45)
[2016-11-03] MEDS ORDERED: predniSONE 20 MG TAB PO ONE ×2 (01:15→06:00)
[2016-11-03 02:59] LABS: BASO # 0.1 K/mm3 (0.0-0.2); BASO % 1.1 % (0.0-1.0); EOS # 0.3 K/mm3 (0.0-0.50); EOS % 4.7 % (0.0-3.0); LARGE UNSTAINED CELL # 0.2 K/mm3 (0.0-0.4); LARGE UNSTAINED CELL % 2.9 % (0.0-4.0); LYMPH # 1.9 K/mm3 (1.5-4.5); LYMPH % 26.1 % (24.0-44.0); MEAN CORPUSCULAR HEMOGLOBIN 29.8 pg (27.0-33.0); MEAN CORPUSCULAR VOLUME 90.3 fl (80.0-96.0); MONO # 0.5 K/mm3 (0.0-0.8); MONO % 7.6 % (0.0-5.0); NEUTROPHILS # 3.8 K/mm3 (1.8-7.7); NEUTROPHILS % 57.5 % (36.0-66.0); PLATELET COUNT, AUTOMATED 265 k/mm3 (150-450); RED CELL DISTRIBUTION WIDTH 14.1 % (11.5-14.5); WHITE BLOOD COUNT 6.6 K/mm3 (4.0-10.0)
[2016-11-03 03:26] LABS: ANION GAP 11 MEQ/L (8-16); BLOOD UREA NITROGEN 19 MG/DL (7-18); CALCIUM LEVEL 8.5 MG/DL (8.5-10.1); CARBON DIOXIDE LEVEL 27 MEQ/L (21-32); CHLORIDE LEVEL 107 MEQ/L (98-107); CREATININE FOR GFR 1.09 MG/DL (0.70-1.30); GLOMERULAR FILTRATION RATE > 60.0 (>56); GLUCOSE, FASTING 242 MG/DL (70-105); POTASSIUM SERUM 3.8 MEQ/L (3.5-5.1); SODIUM LEVEL 145 MEQ/L (136-145)
[2016-11-03] MEDS ORDERED: PRED20TA PO (05:48)
[2016-11-03 05:58] VITALS: BP 116/68
--- NOTE | 2016-11-03 07:45 | REP ---
Clinical: Cough and shortness of breath with history of asthma. Technique: PA and lateral. Comparison: 10/30/2016. Findings: Mediastinum and cardiac silhouette are within normal limits and stable. Trace basilar atelectasis cannot be excluded. No consolidation, effusion, or pneumothorax. Skeletal structures are intact. Impression: Trace basilar atelectasis. Signed by Jeffrey Sofia MD 11/03/2016 07:37 A
== END 2016-11-03 06:08 | disposition home or self-care (01) ==
LOC: M ED 23:44
DX: J45.901 Unspecified asthma with (acute) exacerbation (principal); G47.33 Obstructive sleep apnea (adult) (pediatric); E11.9 Type 2 diabetes mellitus without complications; F41.9 Anxiety disorder, unspecified; Z79.84 Long term (current) use of oral hypoglycemic drugs; Z79.899 Other long term (current) drug therapy; Z88.0 Allergy status to penicillin

== ENCOUNTER → 2016-12-10 | Outpatient (REF) | payer MEDICAID, OTHER ==
[~2016-12-10] MED LIST changes: +ALBU83IN INH; +PRED20TA PO
[2016-12-10 21:22] LABS: ALBUMIN 3.6 GM/DL (3.2-5.2); ALKALINE PHOSPHATASE 91 U/L (45-117); ALT/SGPT 62 U/L (12-78); ANION GAP 9 MEQ/L (8-16); AST/SGOT 23 U/L (15-37); BILIRUBIN,TOTAL 0.5 MG/DL (0.2-1.0); BLOOD UREA NITROGEN 22 MG/DL (7-18); CALCIUM LEVEL 8.8 MG/DL (8.5-10.1); CARBON DIOXIDE LEVEL 26 MEQ/L (21-32); CHLORIDE LEVEL 106 MEQ/L (98-107); CHOLESTEROL LEVEL 184 MG/DL (<200); CREATININE FOR GFR 0.89 MG/DL (0.70-1.30); GLOMERULAR FILTRATION RATE > 60.0 (>56); GLUCOSE, FASTING 201 MG/DL (70-105); POTASSIUM SERUM 3.9 MEQ/L (3.5-5.1); SODIUM LEVEL 141 MEQ/L (136-145); TOTAL PROTEIN 6.6 GM/DL (6.4-8.2); TRIGLYCERIDES LEVEL 243 MG/DL (<150)
== END ==
LOC: M SFHCCAPE 07:18
PROVIDERS: ATTEND Physician Assistant
DX: E78.2 Mixed hyperlipidemia (principal); E11.9 Type 2 diabetes mellitus without complications

== ENCOUNTER 2017-01-11 22:04 | Emergency (ER) | payer MEDICAID, OTHER ==
[~2017-01-11] VITALS: Ht 180.3 cm; Wt 91.8 kg
[2017-01-11 22:24] VITALS: BP 146/82
[2017-01-11] MEDS ORDERED: predniSONE 20 MG TAB PO ONE (23:30)
[2017-01-11] MEDS ORDERED: BENA25CA4 PO (23:30)
[2017-01-11] MEDS ORDERED: FAMOTIDINE 20 MG TAB PO ONE (23:30)
[2017-01-11] MEDS ORDERED: PEPC1TAB4 PO (23:30)
[2017-01-11] MEDS ORDERED: PRED20TA PO (23:30)
== END 2017-01-11 23:51 | disposition home or self-care (01) ==
LOC: M ED 22:04
DX: L29.9 Pruritus, unspecified (principal); T78.40XA Allergy, unspecified, initial encounter; J45.909 Unspecified asthma, uncomplicated; E11.9 Type 2 diabetes mellitus without complications; Z79.899 Other long term (current) drug therapy; Z79.84 Long term (current) use of oral hypoglycemic drugs; Z88.0 Allergy status to penicillin

== ENCOUNTER → 2017-03-13 | Outpatient (REF) ==
[2017-03-15 08:07] LABS: RUBEOLA IgG ANTIBODY <25.0 AU/mL (Immune >29.9)
== END ==
LOC: M LAB 17:00
DX: Z00.00 Encounter for general adult medical examination without abnormal findings (principal)

== ENCOUNTER → 2017-03-21 | Outpatient (REF) | payer OTHER ==
[2017-03-21 17:40] LABS: ESTIMATED AVERAGE GLUCOSE 186 MG/DL (60-110); HEMOGLOBIN A1c 8.1 %
[2017-03-21 17:47] LABS: ALBUMIN/GLOBULIN RATIO 1.21 (1.00-1.93); ALKALINE PHOSPHATASE 79 U/L (45-117); ALT/SGPT 32 U/L (12-78); ANION GAP 11 MEQ/L (8-16); AST/SGOT 23 U/L (7-37); BILIRUBIN,TOTAL 0.5 MG/DL (0.2-1.0); BLOOD UREA NITROGEN 23 MG/DL (7-18); CALCIUM LEVEL 8.7 MG/DL (8.5-10.1); CARBON DIOXIDE LEVEL 22 MEQ/L (21-32); CHLORIDE LEVEL 111 MEQ/L (98-107); CHOLESTEROL LEVEL 207 MG/DL (<200); GLOMERULAR FILTRATION RATE > 60.0 (>56); GLUCOSE, FASTING 146 MG/DL (70-100); HDL CHOLESTEROL 36 MG/DL (>40); LDL CHOLESTEROL 134.6 MG/DL (<100); NON-HDL-C 171 MG/DL; POTASSIUM SERUM 4.1 MEQ/L (3.5-5.1); SODIUM LEVEL 144 MEQ/L (136-145); TOTAL PROTEIN 7.3 GM/DL (6.4-8.2); TRIGLYCERIDES LEVEL 182 MG/DL (<150)
== END ==
LOC: M SFHCCAPE 07:05
DX: E11.9 Type 2 diabetes mellitus without complications (principal); E78.2 Mixed hyperlipidemia
CPT/HCPCS: 83036

== ENCOUNTER → 2017-06-15 | Outpatient (CLI) | payer OTHER ==
[2017-06-15 12:00] LABS: BASO # 0.1 10^3/uL (0.0-0.2); BASO % 1.1 % (0.0-1.0); EOS # 0.4 10^3/uL (0.0-0.50); EOS % 4.8 % (0.0-3.0); HEMATOCRIT 44.9 % (42.0-52.0); IMMATURE GRANULOCYTE % 0.3 % (0-3.0); LYMPH % 24.7 % (24.0-44.0); MEAN CORPUSCULAR HEMOGLOBIN 29.4 pg (27.0-33.0); MEAN CORPUSCULAR HGB CONC 33.4 g/dl (32.0-36.5); MONO # 0.7 10^3/uL (0.0-0.8); MONO % 8.6 % (0.0-5.0); NEUTROPHILS # 4.8 10^3/uL (1.8-7.7); NEUTROPHILS % 60.5 % (36.0-66.0); PLATELET COUNT, AUTOMATED 209 10^3/uL (150-450); RED CELL DISTRIBUTION WIDTH 13.9 % (11.5-14.5); WHITE BLOOD COUNT 7.9 10^3/uL (4.0-10.0)
[2017-06-15 12:38] LABS: ANION GAP 7 MEQ/L (8-16); BLOOD UREA NITROGEN 20 MG/DL (7-18); CALCIUM LEVEL 8.6 MG/DL (8.5-10.1); CARBON DIOXIDE LEVEL 28 MEQ/L (21-32); CHLORIDE LEVEL 106 MEQ/L (98-107); CREATININE FOR GFR 1.01 MG/DL (0.70-1.30); GLOMERULAR FILTRATION RATE > 60.0 (>56); GLUCOSE, FASTING 218 MG/DL (70-100); POTASSIUM SERUM 4.1 MEQ/L (3.5-5.1); SODIUM LEVEL 141 MEQ/L (136-145)
[2017-06-17 09:36] LABS: TESTOSTERONE 208 NG/DL (241-827)
== END ==
LOC: M LAB 11:44
DX: Q98.0 Klinefelter syndrome karyotype 47, XXY (principal)
CPT/HCPCS: 84403

== ENCOUNTER → 2017-07-01 | Outpatient (REF) | payer OTHER ==
[2017-07-01 17:41] LABS: ALBUMIN 3.9 GM/DL (3.2-5.2); ALBUMIN/GLOBULIN RATIO 1.18 (1.00-1.93); ALKALINE PHOSPHATASE 83 U/L (45-117); ALT/SGPT 33 U/L (12-78); ANION GAP 9 MEQ/L (8-16); AST/SGOT 17 U/L (7-37); BILIRUBIN,TOTAL 0.4 MG/DL (0.2-1.0); BLOOD UREA NITROGEN 24 MG/DL (7-18); CALCIUM LEVEL 8.7 MG/DL (8.5-10.1); CARBON DIOXIDE LEVEL 22 MEQ/L (21-32); CHLORIDE LEVEL 113 MEQ/L (98-107); CHOLESTEROL LEVEL 187 MG/DL (<200); CHOLESTEROL RISK RATIO 5.843 (<5); CREATININE FOR GFR 1.05 MG/DL (0.70-1.30); GLOMERULAR FILTRATION RATE > 60.0 (>56); GLUCOSE, FASTING 218 MG/DL (70-100); HDL CHOLESTEROL 32 MG/DL (>40); LDL CHOLESTEROL 109.8 MG/DL (<100); NON-HDL-C 155 MG/DL; POTASSIUM SERUM 4.2 MEQ/L (3.5-5.1); PSA SCREENING 0.61 NG/ML (< 4.0); SODIUM LEVEL 144 MEQ/L (136-145); TOTAL PROTEIN 7.2 GM/DL (6.4-8.2); TRIGLYCERIDES LEVEL 226 MG/DL (<150)
[2017-07-01 17:44] LABS: ESTIMATED AVERAGE GLUCOSE 206 MG/DL (60-110); HEMOGLOBIN A1c 8.8 %
== END ==
LOC: M SFHCCAPE 08:53
DX: E78.2 Mixed hyperlipidemia (principal); E11.9 Type 2 diabetes mellitus without complications; Z12.5 Encounter for screening for malignant neoplasm of prostate

== ENCOUNTER → 2017-07-25 | Outpatient (REF) | payer OTHER ==
[2017-07-25 13:00] LABS: TESTOSTERONE 34 NG/DL (241-827)
== END ==
LOC: M LABDRAW1 12:26
DX: Q98.0 Klinefelter syndrome karyotype 47, XXY (principal)

== ENCOUNTER → 2017-09-03 | Outpatient (CLI) | payer OTHER | LOC: M RAD 07:55 | DX: M25.562 Pain in left knee (principal) | CPT/HCPCS: 73564 ==

== ENCOUNTER 2017-11-03 09:20 | Emergency (ER) | payer OTHER | END 2017-11-03 10:50 | disposition home or self-care (01) | LOC: M ED 09:20 | DX: J06.9 Acute upper respiratory infection, unspecified (principal); E11.9 Type 2 diabetes mellitus without complications; G47.30 Sleep apnea, unspecified; F41.9 Anxiety disorder, unspecified; Z79.899 Other long term (current) drug therapy; Z79.84 Long term (current) use of oral hypoglycemic drugs; Z88.0 Allergy status to penicillin; Z88.8 Allergy status to other drugs, medicaments and biological substances | CPT/HCPCS: 71046 ==

== ENCOUNTER → 2017-12-11 | Outpatient (REF) | payer OTHER ==
[2017-12-11 17:37] LABS: ALBUMIN 4.1 GM/DL (3.2-5.2); ALBUMIN/GLOBULIN RATIO 1.41 (1.00-1.93); ALKALINE PHOSPHATASE 92 U/L (45-117); ALT/SGPT 48 U/L (12-78); ANION GAP 10 MEQ/L (8-16); AST/SGOT 19 U/L (7-37); BILIRUBIN,TOTAL 0.6 MG/DL (0.2-1.0); BLOOD UREA NITROGEN 22 MG/DL (7-18); CALCIUM LEVEL 9.5 MG/DL (8.5-10.1); CARBON DIOXIDE LEVEL 27 MEQ/L (21-32); CHLORIDE LEVEL 103 MEQ/L (98-107); CHOLESTEROL LEVEL 202 MG/DL (<200); CHOLESTEROL RISK RATIO 6.733 (<5); CREATININE FOR GFR 1.12 MG/DL (0.70-1.30); GLOMERULAR FILTRATION RATE > 60.0 (>56); GLUCOSE, FASTING 320 MG/DL (70-100); HDL CHOLESTEROL 30 MG/DL (>40); LDL CHOLESTEROL 108 MG/DL (<100); NON-HDL-C 172 MG/DL; POTASSIUM SERUM 4.1 MEQ/L (3.5-5.1); SODIUM LEVEL 140 MEQ/L (136-145); TRIGLYCERIDES LEVEL 320 MG/DL (<150)
[2017-12-11 17:53] LABS: ESTIMATED AVERAGE GLUCOSE 258 MG/DL (60-110); HEMOGLOBIN A1c 10.6 %
== END ==
LOC: M SFHCCAPE 09:33
DX: E11.9 Type 2 diabetes mellitus without complications (principal)
CPT/HCPCS: 84443

== ENCOUNTER → 2018-03-12 | Outpatient (REF) | payer OTHER ==
[~2018-03-12] MED LIST changes: +ACET30TAB PO; +ALL10TAB28 PO; +ALOG12.5; +BENA25CA4 PO; +JARD1TAB3; +PEPC1TAB5 PO; +TESS100C PO; +TIZA4CAP PO; -TIZA4CAP3 PO; +TOUJ1.2I SQ; +ZONI100C2
[2018-03-12 17:20] LABS: ALBUMIN 3.9 GM/DL (3.2-5.2); ALT/SGPT 44 U/L (12-78); BILIRUBIN,TOTAL 0.5 MG/DL (0.2-1.0); BLOOD UREA NITROGEN 28 MG/DL (7-18); CALCIUM LEVEL 8.9 MG/DL (8.5-10.1); CARBON DIOXIDE LEVEL 22 MEQ/L (21-32); CHLORIDE LEVEL 110 MEQ/L (98-107); CHOLESTEROL LEVEL 141 MG/DL (<200); CHOLESTEROL RISK RATIO 4.406 (<5); CREATININE FOR GFR 1.05 MG/DL (0.70-1.30); GLOMERULAR FILTRATION RATE > 60.0 (>56); GLUCOSE, FASTING 259 MG/DL (70-100); HDL CHOLESTEROL 32 MG/DL (>40); LDL CHOLESTEROL 31 MG/DL (<100); NON-HDL-C 109 MG/DL; POTASSIUM SERUM 4.3 MEQ/L (3.5-5.1); SODIUM LEVEL 142 MEQ/L (136-145); TOTAL PROTEIN 6.7 GM/DL (6.4-8.2); TRIGLYCERIDES LEVEL 390 MG/DL (<150)
[2018-03-12 17:24] LABS: CREATININE, URINE 59.3 MG/DL; MALB URINE SIEMENS < 5.0 MG/L; MAU/CREAT RATIO 8.4 MCG/MG (0.0-30.0)
[2018-03-12 17:48] LABS: HEMOGLOBIN A1c 10.9 %
[2018-03-15 00:06] LABS: TESTOSTERONE FREE (DIRECT) 0.4 pg/mL (7.2-24.0)
== END ==
LOC: M SFHCCAPE 03-11 08:49
PROVIDERS: ATTEND Physician Assistant
DX: E11.65 Type 2 diabetes mellitus with hyperglycemia (principal); Q98.0 Klinefelter syndrome karyotype 47, XXY

== ENCOUNTER 2018-06-19 23:49 | Emergency (ER) | payer OTHER ==
[~2018-06-19] VITALS: Ht 172.7 cm; Wt 96.4 kg
[~2018-06-19 23:49] MED LIST changes: +ACET-716 PO; -ACET30TAB PO
--- NOTE | 2018-06-20 01:00 | REPVR ---
EXAM: CT Head Without Contrast EXAM DATE/TIME: 06/19/2018 11:58 PM CLINICAL HISTORY: 53 years old, male; Injury or trauma; Fall TECHNIQUE: Imaging protocol: Axial computed tomography images of the head/brain without contrast. Radiation optimization: All CT scans at this facility use at least one of these dose optimization techniques: automated exposure control; mA and/or kV adjustment per patient size (includes targeted exams where dose is matched to clinical indication); or iterative reconstruction. COMPARISON: No relevant prior studies available. FINDINGS: Brain: No CT evidence of acute intracranial hemorrhage or acute territorial infarction. No significant mass effect or midline shift. Basal cisterns patent. Ventricles: Normal in size and configuration. Bones/joints: No acute osseous abnormality. Sinuses: Grossly unremarkable. Mastoid air cells: Grossly unremarkable. Soft tissues: Grossly unremarkable. IMPRESSION: No CT evidence of acute intracranial pathology. Electronically signed by: Denys Fraser On 06/20/2018 01:00:41 AM
--- NOTE | 2018-06-20 01:05 | REPVR ---
EXAM: CT Cervical Spine Without Contrast EXAM DATE/TIME: 06/19/2018 11:58 PM CLINICAL HISTORY: 53 years old, male; Injury or trauma; Fall; Work related; Initial encounter; Concussion /head injury TECHNIQUE: Imaging protocol: Axial computed tomography images of the cervical spine without contrast. Coronal and sagittal reformatted images were created and reviewed. Radiation optimization: All CT scans at this facility use at least one of these dose optimization techniques: automated exposure control; mA and/or kV adjustment per patient size (includes targeted exams where dose is matched to clinical indication); or iterative reconstruction. COMPARISON: No relevant prior studies available. FINDINGS: Vertebrae: Osteopenia. Normal cervical lordosis. Mild dextroscoliosis. Mild anterolisthesis of C4 on C5. Alignment otherwise anatomic. No CT evidence of acute fracture, dislocation or subluxation. Vertebral body heights maintained. Discs/Spinal canal/Neural foramina: Mild multilevel spondylosis. No significant spinal canal or neural foraminal stenosis. Soft tissues: Grossly unremarkable. Lungs: Grossly unremarkable. IMPRESSION: 1. No CT evidence of acute cervical spine traumatic injury. 2. Additional findings, as above. Electronically signed by: Denys Fraser On 06/20/2018 01:05:39 AM
--- NOTE | 2018-06-20 01:10 | REPVR ---
EXAM: CT Maxillofacial Without Contrast EXAM DATE/TIME: 06/19/2018 11:58 PM CLINICAL HISTORY: 53 years old, male; Injury or trauma; Fall; Work related; Initial encounter; Concussion /head injury; Loss of consciousness not known TECHNIQUE: Imaging protocol: Axial computed tomography images of the face without intravenous contrast. Coronal and sagittal reformatted images were created and reviewed. Radiation optimization: All CT scans at this facility use at least one of these dose optimization techniques: automated exposure control; mA and/or kV adjustment per patient size (includes targeted exams where dose is matched to clinical indication); or iterative reconstruction. COMPARISON: No relevant prior studies available. FINDINGS: Orbits: No acute intraorbital abnormality. Globes intact. Sinuses: Minimal ethmoid and maxillary sinus mucosal thickening. Bones/joints: No acute fracture. Soft tissues: No significant facial soft tissue swelling. IMPRESSION: 1. No acute facial bone fracture. 2. Additional findings, as above. Electronically signed by: Denys Fraser On 06/20/2018 01:10:07 AM
[2018-06-20 04:10] VITALS: BP 125/80
== END 2018-06-20 04:19 | disposition home or self-care (01) ==
LOC: M ED 23:49
DX: S09.90XA Unspecified injury of head, initial encounter (principal); W01.0XXA Fall on same level from slipping, tripping and stumbling without subsequent striking against object, initial encounter; Y92.128 Other place in nursing home as the place of occurrence of the external cause; Y99.0 Civilian activity done for income or pay; E11.9 Type 2 diabetes mellitus without complications; Z79.899 Other long term (current) drug therapy; Z79.4 Long term (current) use of insulin; Z88.0 Allergy status to penicillin; Z88.8 Allergy status to other drugs, medicaments and biological substances; Z91.048 Other nonmedicinal substance allergy status

== ENCOUNTER → 2018-08-18 | Outpatient (REF) | payer OTHER ==
[2018-08-18 18:29] LABS: BASO # 0.1 10^3/uL (0.0-0.2); BASO % 1.1 % (0.0-1.0); EOS # 0.6 10^3/uL (0.0-0.50); EOS % 8.7 % (0.0-3.0); HEMATOCRIT 47.2 % (42.0-52.0); HEMOGLOBIN 15.6 g/dl (13.5-17.5); LYMPH # 1.9 10^3/uL (1.5-4.5); LYMPH % 29.7 % (24.0-44.0); MEAN CORPUSCULAR HEMOGLOBIN 30.2 pg (27.0-33.0); MEAN CORPUSCULAR HGB CONC 33.1 g/dl (32.0-36.5); MEAN CORPUSCULAR VOLUME 91.3 fl (80.0-96.0); MONO # 0.6 10^3/uL (0.0-0.8); MONO % 9.1 % (0.0-5.0); NEUTROPHILS # 3.2 10^3/uL (1.8-7.7); NEUTROPHILS % 51.1 % (36.0-66.0); PLATELET COUNT, AUTOMATED 225 10^3/uL (150-450); RED BLOOD COUNT 5.17 10^6/uL (4.30-6.10); WHITE BLOOD COUNT 6.3 10^3/uL (4.0-10.0)
[2018-08-18 18:36] LABS: HEMOGLOBIN A1c 11.5 %
[2018-08-18 19:12] LABS: ALBUMIN 3.8 GM/DL (3.2-5.2); ALT/SGPT 47 U/L (12-78); BILIRUBIN,TOTAL 0.6 MG/DL (0.2-1.0); BLOOD UREA NITROGEN 21 MG/DL (7-18); CALCIUM LEVEL 8.4 MG/DL (8.5-10.1); CARBON DIOXIDE LEVEL 26 MEQ/L (21-32); CHLORIDE LEVEL 108 MEQ/L (98-107); CHOLESTEROL LEVEL 216 MG/DL (<200); CHOLESTEROL RISK RATIO 6.545 (<5); CREATININE FOR GFR 0.92 MG/DL (0.70-1.30); GLOMERULAR FILTRATION RATE > 60.0 (>56); GLUCOSE, FASTING 195 MG/DL (70-100); HDL CHOLESTEROL 33 MG/DL (>40); LDL CHOLESTEROL 136 MG/DL (<100); NON-HDL-C 183 MG/DL; POTASSIUM SERUM 4.1 MEQ/L (3.5-5.1); SODIUM LEVEL 142 MEQ/L (136-145); TOTAL PROTEIN 7.1 GM/DL (6.4-8.2); TRIGLYCERIDES LEVEL 236 MG/DL (<150)
[2018-08-25 14:10] LABS: TESTOSTERONE TOTAL 13 ng/dL (264-916)
== END ==
LOC: M SFHCCAPE 07:53
PROVIDERS: ATTEND Physician Assistant
DX: E11.9 Type 2 diabetes mellitus without complications (principal); E78.2 Mixed hyperlipidemia; E29.1 Testicular hypofunction

== ENCOUNTER → 2018-10-09 | Outpatient (REF) | payer OTHER ==
[~2018-10-09] MED LIST changes: -ALL10TAB28 PO; +ALL10TAB29 PO; +ZONI100C17; -ZONI100C2
[2018-10-14 11:14] LABS: TESTOSTERONE %FREE+WEAKLY BOUN 38.8 % (9.0-46.0); TESTOSTERONE FREE+WEAKLY BOUND 113.7 ng/dL (40.0-250.0); TESTOSTERONE TOTAL 293 ng/dL (264-916)
== END ==
LOC: M LABDRWCV 16:25
PROVIDERS: ATTEND Physician Assistant
DX: Q98.4 Klinefelter syndrome, unspecified (principal); E29.1 Testicular hypofunction

== ENCOUNTER → 2018-12-17 | Outpatient (REF) | payer OTHER ==
[~2018-12-17] MED LIST changes: -ZONI100C17; +ZONI100C2
== END ==
LOC: M SFHCCAPE 10:25
PROVIDERS: ATTEND Physician Assistant
DX: B37.9 Candidiasis, unspecified (principal)

== ENCOUNTER → 2019-01-01 | Outpatient (REF) | payer OTHER ==
[2019-01-01 17:20] LABS: ALBUMIN 3.7 GM/DL (3.2-5.2); ALT/SGPT 36 U/L (12-78); BILIRUBIN,TOTAL 0.6 MG/DL (0.2-1.0); BLOOD UREA NITROGEN 14 MG/DL (7-18); CALCIUM LEVEL 8.9 MG/DL (8.5-10.1); CARBON DIOXIDE LEVEL 30 MEQ/L (21-32); CHLORIDE LEVEL 105 MEQ/L (98-107); CHOLESTEROL LEVEL 132 MG/DL (<200); CHOLESTEROL RISK RATIO 3.771 (<5); CREATININE FOR GFR 0.94 MG/DL (0.70-1.30); GLOMERULAR FILTRATION RATE > 60.0 (>56); GLUCOSE, FASTING 138 MG/DL (70-100); HDL CHOLESTEROL 35 MG/DL (>40); LDL CHOLESTEROL 70 MG/DL (<100); NON-HDL-C 97 MG/DL; POTASSIUM SERUM 4.1 MEQ/L (3.5-5.1); SODIUM LEVEL 141 MEQ/L (136-145); TOTAL PROTEIN 6.9 GM/DL (6.4-8.2); TRIGLYCERIDES LEVEL 135 MG/DL (<150)
[2019-01-01 17:33] LABS: HEMOGLOBIN A1c 7.1 %
[2019-01-01 17:41] LABS: CREATININE, URINE 99.7 MG/DL; MALB URINE SIEMENS 7.8 MG/L; MAU/CREAT RATIO 7.8 MCG/MG (0.0-30.0)
[2019-01-01 17:47] LABS: BASO # 0.1 10^3/uL (0.0-0.2); BASO % 1.2 % (0.0-1.0); EOS # 0.4 10^3/uL (0.0-0.5); EOS % 4.4 % (0.0-3.0); HEMATOCRIT 47.4 % (42.0-52.0); HEMOGLOBIN 14.8 g/dl (13.5-17.5); LYMPH # 2.2 10^3/uL (1.5-5.0); LYMPH % 26.2 % (24.0-44.0); MEAN CORPUSCULAR HEMOGLOBIN 29.1 pg (27.0-33.0); MEAN CORPUSCULAR HGB CONC 31.2 g/dl (32.0-36.5); MEAN CORPUSCULAR VOLUME 93.3 fl (80.0-96.0); MONO # 0.7 10^3/uL (0.0-0.8); MONO % 8.6 % (0.0-5.0); NEUTROPHILS % 59.2 % (36.0-66.0); PLATELET COUNT, AUTOMATED 265 10^3/uL (150-450); RED BLOOD COUNT 5.08 10^6/uL (4.30-6.10); WHITE BLOOD COUNT 8.4 10^3/uL (4.0-10.0)
== END ==
LOC: M SFHCCAPE 09:08
PROVIDERS: ATTEND Physician Assistant
DX: E78.2 Mixed hyperlipidemia (principal); E11.9 Type 2 diabetes mellitus without complications

== ENCOUNTER → 2019-12-21 | Outpatient (REF) | payer OTHER ==
[~2019-12-21] MED LIST changes: -ALL10TAB29 PO; +CETI-24 PO; +ZONI100C17; -ZONI100C2
[2019-12-21 12:43] LABS: BASO # 0.1 10^3/uL (0.0-0.2); BASO % 1.5 % (0.0-1.0); EOS # 0.3 10^3/uL (0.0-0.5); EOS % 3.9 % (0.0-3.0); HEMATOCRIT 49.4 % (42.0-52.0); HEMOGLOBIN 15.8 g/dl (13.5-17.5); LYMPH # 1.8 10^3/uL (1.5-5.0); MEAN CORPUSCULAR HEMOGLOBIN 29.8 pg (27.0-33.0); MEAN CORPUSCULAR VOLUME 93.2 fl (80.0-96.0); MONO # 0.7 10^3/uL (0.0-0.8); MONO % 10.7 % (0.0-5.0); NEUTROPHILS % 57.5 % (36.0-66.0); PLATELET COUNT, AUTOMATED 248 10^3/uL (150-450); WHITE BLOOD COUNT 6.9 10^3/uL (4.0-10.0)
[2019-12-21 16:47] LABS: CREATININE, URINE 91.4 MG/DL; MALB URINE SIEMENS 11.6 MG/L; MAU/CREAT RATIO 12.6 MCG/MG (0.0-30.0)
[2019-12-21 16:49] LABS: ALBUMIN 4.1 GM/DL (3.2-5.2); ALT/SGPT 36 U/L (12-78); BILIRUBIN,TOTAL 0.6 MG/DL (0.2-1.0); BLOOD UREA NITROGEN 25 MG/DL (7-18); CALCIUM LEVEL 9.9 MG/DL (8.5-10.1); CARBON DIOXIDE LEVEL 28 MEQ/L (21-32); CHLORIDE LEVEL 104 MEQ/L (98-107); CHOLESTEROL LEVEL 155 MG/DL (<200); CHOLESTEROL RISK RATIO 4.558 (<5); CREATININE FOR GFR 1.09 MG/DL (0.70-1.30); GLOMERULAR FILTRATION RATE > 60.0 (>56); GLUCOSE, FASTING 214 MG/DL (70-100); HDL CHOLESTEROL 34 MG/DL (>40); LDL CHOLESTEROL 79 MG/DL (<100); NON-HDL-C 121 MG/DL; POTASSIUM SERUM 4.5 MEQ/L (3.5-5.1); SODIUM LEVEL 138 MEQ/L (136-145); TOTAL PROTEIN 7.3 GM/DL (6.4-8.2); TRIGLYCERIDES LEVEL 211 MG/DL (<150)
== END ==
LOC: M SFHCCLAY 08:54
PROVIDERS: ATTEND Physician Assistant
DX: E11.9 Type 2 diabetes mellitus without complications (principal)

== ENCOUNTER → 2020-03-09 | Outpatient (REF) | payer OTHER | LOC: M LABDRAWC 11:26 | PROVIDERS: ATTEND Physician Assistant | DX: E29.1 Testicular hypofunction (principal); Q98.4 Klinefelter syndrome, unspecified ==

== ENCOUNTER → 2020-04-23 | Outpatient (CLI) | payer SELFPAY | LOC: M LABSMTC 11:43 | PROVIDERS: ATTEND Pediatrics | DX: Z20.822 Contact with and (suspected) exposure to COVID-19 (principal) ==

== ENCOUNTER → 2020-05-19 | Outpatient (REF) | payer OTHER ==
[2020-05-19 18:26] LABS: ALBUMIN 3.8 GM/DL (3.2-5.2); ALT/SGPT 43 U/L (12-78); BILIRUBIN,TOTAL 0.8 MG/DL (0.2-1.0); BLOOD UREA NITROGEN 20 MG/DL (7-18); CALCIUM LEVEL 9.1 MG/DL (8.5-10.1); CARBON DIOXIDE LEVEL 26 MEQ/L (21-32); CHLORIDE LEVEL 106 MEQ/L (98-107); CHOLESTEROL LEVEL 143 MG/DL (<200); CHOLESTEROL RISK RATIO 4.205 (<5); GLOMERULAR FILTRATION RATE > 60.0 (>56); GLUCOSE, FASTING 219 MG/DL (70-100); HDL CHOLESTEROL 34 MG/DL (>40); LDL CHOLESTEROL 66 MG/DL (<100); NON-HDL-C 109 MG/DL; POTASSIUM SERUM 4.1 MEQ/L (3.5-5.1); SODIUM LEVEL 138 MEQ/L (136-145); TOTAL PROTEIN 6.8 GM/DL (6.4-8.2); TRIGLYCERIDES LEVEL 215 MG/DL (<150)
[2020-05-19 18:46] LABS: HEMOGLOBIN A1c 8.4 %
[2020-05-21 16:07] LABS: Lyme Disease IgG/IgM Antibodie <0.91 ISR (0.00-0.90); Lyme Disease IgM Ab Quantitati <0.80 index (0.00-0.79)
== END ==
LOC: M SFHCCAPE 09:50
PROVIDERS: ATTEND Physician Assistant
DX: E78.2 Mixed hyperlipidemia (principal); E11.65 Type 2 diabetes mellitus with hyperglycemia; S70.361A Insect bite (nonvenomous), right thigh, initial encounter; W57.XXXA Bitten or stung by nonvenomous insect and other nonvenomous arthropods, initial encounter; Z12.5 Encounter for screening for malignant neoplasm of prostate

== ENCOUNTER → 2020-08-23 | Outpatient (REF) | payer OTHER ==
[2020-08-23 17:35] LABS: BASO # 0.1 10^3/uL (0.0-0.2); BASO % 1.4 % (0.0-1.0); EOS # 0.3 10^3/uL (0.0-0.5); EOS % 4.2 % (0.0-3.0); HEMATOCRIT 50.2 % (42.0-52.0); HEMOGLOBIN 16.1 g/dl (13.5-17.5); LYMPH # 1.9 10^3/uL (1.5-5.0); LYMPH % 29.8 % (24.0-44.0); MEAN CORPUSCULAR HGB CONC 32.1 g/dl (32.0-36.5); MEAN CORPUSCULAR VOLUME 93.5 fl (80.0-96.0); MONO # 0.6 10^3/uL (0.0-0.8); MONO % 9.5 % (2.0-8.0); NEUTROPHILS # 3.4 10^3/uL (1.5-8.5); NEUTROPHILS % 54.8 % (36.0-66.0); PLATELET COUNT, AUTOMATED 210 10^3/uL (150-450); RED BLOOD COUNT 5.37 10^6/uL (4.30-6.10); WHITE BLOOD COUNT 6.2 10^3/uL (4.0-10.0)
[2020-08-23 18:20] LABS: ALBUMIN 3.7 GM/DL (3.2-5.2); ALT/SGPT 37 U/L (12-78); BILIRUBIN,TOTAL 0.6 MG/DL (0.2-1.0); BLOOD UREA NITROGEN 20 MG/DL (7-18); CALCIUM LEVEL 8.7 MG/DL (8.5-10.1); CARBON DIOXIDE LEVEL 24 MEQ/L (21-32); CHLORIDE LEVEL 105 MEQ/L (98-107); CHOLESTEROL LEVEL 151 MG/DL (<200); CHOLESTEROL RISK RATIO 5.033 (<5); CREATININE FOR GFR 0.92 MG/DL (0.70-1.30); GLOMERULAR FILTRATION RATE > 60.0 (>56); GLUCOSE, FASTING 264 MG/DL (70-100); HDL CHOLESTEROL 30 MG/DL (>40); LDL CHOLESTEROL 80 MG/DL (<100); NON-HDL-C 121 MG/DL; POTASSIUM SERUM 4.2 MEQ/L (3.5-5.1); SODIUM LEVEL 137 MEQ/L (136-145); TOTAL PROTEIN 6.5 GM/DL (6.4-8.2); TRIGLYCERIDES LEVEL 205 MG/DL (<150)
[2020-08-23 18:47] LABS: HEMOGLOBIN A1c 9.8 %
== END ==
LOC: M SFHCCAPE 07:39
PROVIDERS: ATTEND Physician Assistant
DX: E11.9 Type 2 diabetes mellitus without complications (principal)

== ENCOUNTER → 2021-05-16 | Outpatient (REF) | payer OTHER ==
[2021-05-16 16:23] LABS: BASO # 0.1 10^3/uL (0.0-0.2); BASO % 1.2 % (0.0-1.0); EOS # 0.2 10^3/uL (0.0-0.5); EOS % 2.8 % (0.0-3.0); HEMATOCRIT 52.7 % (42.0-52.0); HEMOGLOBIN 17.4 g/dl (13.5-17.5); LYMPH # 1.6 10^3/uL (1.5-5.0); LYMPH % 23.4 % (24.0-44.0); MEAN CORPUSCULAR HEMOGLOBIN 30.6 pg (27.0-33.0); MEAN CORPUSCULAR VOLUME 92.6 fl (80.0-96.0); MONO # 0.6 10^3/uL (0.0-0.8); MONO % 8.7 % (2.0-8.0); NEUTROPHILS # 4.2 10^3/uL (1.5-8.5); NEUTROPHILS % 63.5 % (36.0-66.0); PLATELET COUNT, AUTOMATED 181 10^3/uL (150-450); RED BLOOD COUNT 5.69 10^6/uL (4.30-6.10); WHITE BLOOD COUNT 6.7 10^3/uL (4.0-10.0)
[2021-05-16 16:32] LABS: HEMOGLOBIN A1c 8.3 %
[2021-05-16 17:14] LABS: ALT/SGPT 31 U/L (12-78); BLOOD UREA NITROGEN 25 MG/DL (7-18); CALCIUM LEVEL 8.9 MG/DL (8.5-10.1); CARBON DIOXIDE LEVEL 27 MEQ/L (21-32); CHLORIDE LEVEL 107 MEQ/L (98-107); CHOLESTEROL LEVEL 141 MG/DL (<200); CREATININE FOR GFR 1.05 MG/DL (0.70-1.30); GLOMERULAR FILTRATION RATE > 60.0 (>56); GLUCOSE, FASTING 208 MG/DL (70-100); HDL CHOLESTEROL 35 MG/DL (>40); POTASSIUM SERUM 4.2 MEQ/L (3.5-5.1); SODIUM LEVEL 139 MEQ/L (136-145); TESTOSTERONE 523 NG/DL (241-827); TRIGLYCERIDES LEVEL 72 MG/DL (<150)
[2021-05-16 17:15] LABS: CHOLESTEROL RISK RATIO 4.028 (<5); FREE T4 0.73 NG/DL (0.76-1.46); LDL CHOLESTEROL 92 MG/DL (<100); NON-HDL-C 106 MG/DL; PROSTATIC SPECIFIC AG MONITOR 1.25 NG/ML (< 4.00); TOTAL PROTEIN 6.9 GM/DL (6.4-8.2)
== END ==
LOC: M LABDRWCV 15:31
PROVIDERS: ATTEND Physician Assistant
DX: E11.65 Type 2 diabetes mellitus with hyperglycemia (principal); Z79.4 Long term (current) use of insulin; E29.1 Testicular hypofunction; Q98.4 Klinefelter syndrome, unspecified; E78.5 Hyperlipidemia, unspecified

== ENCOUNTER → 2021-11-09 | Outpatient (REF) | payer OTHER ==
[~2021-11-09] MED LIST changes: +ALBU2.5V10 INH; -ALBU83IN INH; -ZONI100C17; +ZONI100C67
[2021-11-09 17:11] LABS: BASO # 0.1 10^3/uL (0.0-0.2); EOS # 0.2 10^3/uL (0.0-0.5); EOS % 3.2 % (0.0-3.0); HEMATOCRIT 50.1 % (42.0-52.0); HEMOGLOBIN 16.5 g/dl (13.5-17.5); LYMPH # 1.6 10^3/uL (1.5-5.0); LYMPH % 23.5 % (24.0-44.0); MEAN CORPUSCULAR HEMOGLOBIN 30.7 pg (27.0-33.0); MEAN CORPUSCULAR HGB CONC 32.9 g/dl (32.0-36.5); MEAN CORPUSCULAR VOLUME 93.1 fl (80.0-96.0); MONO # 0.7 10^3/uL (0.0-0.8); MONO % 10.1 % (2.0-8.0); NEUTROPHILS # 4.2 10^3/uL (1.5-8.5); NEUTROPHILS % 61.8 % (36.0-66.0); PLATELET COUNT, AUTOMATED 227 10^3/uL (150-450); RED BLOOD COUNT 5.38 10^6/uL (4.30-6.10); WHITE BLOOD COUNT 6.8 10^3/uL (4.0-10.0)
[2021-11-09 17:50] LABS: HEMOGLOBIN A1c 8.6 %
[2021-11-09 18:00] LABS: ALBUMIN 3.8 GM/DL (3.2-5.2); ALT/SGPT 30 U/L (12-78); BILIRUBIN,TOTAL 0.7 MG/DL (0.2-1.0); BLOOD UREA NITROGEN 25 MG/DL (7-18); CALCIUM LEVEL 8.9 MG/DL (8.5-10.1); CARBON DIOXIDE LEVEL 24 MEQ/L (21-32); CHLORIDE LEVEL 106 MEQ/L (98-107); CHOLESTEROL LEVEL 158 MG/DL (<200); CHOLESTEROL RISK RATIO 5.096 (<5); GLOMERULAR FILTRATION RATE > 60.0 (>56); GLUCOSE, FASTING 290 MG/DL (70-100); HDL CHOLESTEROL 31 MG/DL (>40); LDL CHOLESTEROL 95 MG/DL (<100); NON-HDL-C 127 MG/DL; POTASSIUM SERUM 4.2 MEQ/L (3.5-5.1); SODIUM LEVEL 137 MEQ/L (136-145); TOTAL PROTEIN 6.9 GM/DL (6.4-8.2); TRIGLYCERIDES LEVEL 162 MG/DL (<150)
[2021-11-09 18:24] LABS: TOTAL 25(OH) VITAMIN D 21.9 NG/ML (30.0-100.0)
== END ==
LOC: M SFHCCAPE 07:50
PROVIDERS: ATTEND Physician Assistant
DX: E11.65 Type 2 diabetes mellitus with hyperglycemia (principal)

== ENCOUNTER → 2021-11-13 | Outpatient (REF) | payer OTHER ==
[2021-11-13 19:30] LABS: MALB URINE SIEMENS 11.1 MG/L; MAU/CREAT RATIO 10.6 MCG/MG (0.0-30.0)
== END ==
LOC: M SFHCCAPE 17:29
PROVIDERS: ATTEND Physician Assistant
DX: E11.65 Type 2 diabetes mellitus with hyperglycemia (principal)

== ENCOUNTER → 2022-03-14 | Outpatient (REF) | payer OTHER ==
[2022-03-14 17:03] LABS: ALBUMIN 4.3 G/DL (3.2-5.2); ALKALINE PHOSPHATASE 65 U/L (46-116); ALT/SGPT 33 U/L (7.0-40); AST/SGOT 21 U/L (<34); BILIRUBIN,TOTAL 0.9 MG/DL (0.3-1.2); BLOOD UREA NITROGEN 28 MG/DL (9-23); CALCIUM LEVEL 9.9 MG/DL (8.5-10.1); CARBON DIOXIDE LEVEL 25 MMOL/L (20-31); CHLORIDE LEVEL 107 MMOL/L (98-107); CHOLESTEROL LEVEL 133 MG/DL (<200); CREATININE FOR GFR 0.93 MG/DL (0.70-1.30); GLOMERULAR FILTRATION RATE > 60.0 (>56); GLUCOSE, FASTING 197 MG/DL (60-100); LDL CHOLESTEROL 75.8 MG/DL (<100); NON-HDL-C 98 MG/DL; POTASSIUM SERUM 4.3 MMOL/L (3.5-5.1); SODIUM LEVEL 138 MMOL/L (136-145); TOTAL PROTEIN 7.1 G/DL (5.7-8.2); TRIGLYCERIDES LEVEL 111 MG/DL (<150)
[2022-03-14 17:04] LABS: THYROID STIMULATING HORMONE 2.947 uIU/ML (0.55-4.78)
[2022-03-14 17:05] LABS: TOTAL 25(OH) VITAMIN D 64.1 NG/ML (20.0-100.0)
[2022-03-14 17:15] LABS: BASO # 0.1 10^3/uL (0.0-0.2); BASO % 0.8 % (0.0-1.0); EOS # 0.2 10^3/uL (0.0-0.5); EOS % 2.7 % (0.0-3.0); HEMATOCRIT 50.6 % (42.0-52.0); HEMOGLOBIN 16.7 g/dl (13.5-17.5); LYMPH # 1.7 10^3/uL (1.5-5.0); LYMPH % 19.7 % (24.0-44.0); MEAN CORPUSCULAR HEMOGLOBIN 30.5 pg (27.0-33.0); MEAN CORPUSCULAR VOLUME 92.3 fl (80.0-96.0); MONO # 0.7 10^3/uL (0.0-0.8); MONO % 8.6 % (2.0-8.0); NEUTROPHILS # 5.9 10^3/uL (1.5-8.5); PLATELET COUNT, AUTOMATED 237 10^3/uL (150-450); RED BLOOD COUNT 5.48 10^6/uL (4.30-6.10); WHITE BLOOD COUNT 8.6 10^3/uL (4.0-10.0)
== END ==
LOC: M SFHCCAPE 07:56
PROVIDERS: ATTEND Physician Assistant
DX: F41.8 Other specified anxiety disorders (principal); E78.2 Mixed hyperlipidemia; Z12.5 Encounter for screening for malignant neoplasm of prostate; E55.9 Vitamin D deficiency, unspecified

== ENCOUNTER → 2022-04-11 | Outpatient (REF) | payer OTHER ==
[2022-04-11 17:30] LABS: THYROID STIMULATING HORMONE 1.365 uIU/ML (0.55-4.78)
== END ==
LOC: M LABDRAWC 16:40
PROVIDERS: ATTEND Physician Assistant
DX: E29.1 Testicular hypofunction (principal); E11.65 Type 2 diabetes mellitus with hyperglycemia; Z79.4 Long term (current) use of insulin

== ENCOUNTER → 2022-09-24 | Outpatient (REF) | payer OTHER ==
[2022-09-24 17:41] LABS: CREATININE, URINE 77.1 MG/DL
[2022-09-24 17:42] LABS: MALB URINE SIEMENS < 3.0 MG/L; MAU/CREAT RATIO 3.8 MCG/MG (0.0-30.0)
[2022-09-24 17:43] LABS: ALBUMIN 3.8 G/DL (3.2-5.2); ALKALINE PHOSPHATASE 57 U/L (46-116); ALT/SGPT 34 U/L (7.0-40); AST/SGOT 16 U/L (<34); BILIRUBIN,TOTAL 0.6 MG/DL (0.3-1.2); BLOOD UREA NITROGEN 18 MG/DL (9-23); CARBON DIOXIDE LEVEL 22 MMOL/L (20-31); CHLORIDE LEVEL 108 MMOL/L (98-107); CHOLESTEROL LEVEL 109 MG/DL (<200); CHOLESTEROL RISK RATIO 3.44 (<5); CREATININE FOR GFR 0.74 MG/DL (0.70-1.30); GLOMERULAR FILTRATION RATE > 60.0 (>56); GLUCOSE, FASTING 228 MG/DL (60-100); HDL CHOLESTEROL 31.6 MG/DL (>40); LDL CHOLESTEROL 62.4 MG/DL (<100); NON-HDL-C 77.4 MG/DL; POTASSIUM SERUM 4.3 MMOL/L (3.5-5.1); SODIUM LEVEL 141 MMOL/L (136-145); TOTAL PROTEIN 6.3 G/DL (5.7-8.2); TRIGLYCERIDES LEVEL 75 MG/DL (<150)
== END ==
LOC: M SFHCCAPE 07:40
PROVIDERS: ATTEND Physician Assistant
DX: E11.65 Type 2 diabetes mellitus with hyperglycemia (principal); E78.2 Mixed hyperlipidemia

== ENCOUNTER → 2023-04-22 | Outpatient (REF) | payer OTHER ==
[2023-04-22 18:17] LABS: BASO # 0.1 10^3/uL (0.0-0.2); BASO % 1.3 % (0.0-1.0); EOS # 0.3 10^3/uL (0.0-0.5); EOS % 5.9 % (0.0-3.0); HEMATOCRIT 45.8 % (42.0-52.0); HEMOGLOBIN 15.2 g/dl (13.5-17.5); LYMPH # 1.3 10^3/uL (1.5-5.0); MEAN CORPUSCULAR HEMOGLOBIN 30.3 pg (27.0-33.0); MEAN CORPUSCULAR HGB CONC 33.2 g/dl (32.0-36.5); MEAN CORPUSCULAR VOLUME 91.4 fl (80.0-96.0); MONO # 0.5 10^3/uL (0.0-0.8); MONO % 8.8 % (2.0-8.0); NEUTROPHILS # 3.3 10^3/uL (1.5-8.5); NEUTROPHILS % 59.6 % (36.0-66.0); PLATELET COUNT, AUTOMATED 188 10^3/uL (150-450); RED BLOOD COUNT 5.01 10^6/uL (4.30-6.10); WHITE BLOOD COUNT 5.6 10^3/uL (4.0-10.0)
[2023-04-22 18:30] LABS: HEMOGLOBIN A1c 9.6 % (4.0-6.0)
== END ==
LOC: M SFHCCAPE 10:55
PROVIDERS: ATTEND Physician Assistant Medical
DX: E11.65 Type 2 diabetes mellitus with hyperglycemia (principal); F41.8 Other specified anxiety disorders

== ENCOUNTER → 2023-04-30 | Outpatient (REF) | payer OTHER ==
[2023-04-30 17:34] LABS: BASO # 0.1 10^3/uL (0.0-0.2); BASO % 1.4 % (0.0-1.0); EOS # 0.4 10^3/uL (0.0-0.5); EOS % 6.5 % (0.0-3.0); HEMATOCRIT 45.9 % (42.0-52.0); HEMOGLOBIN 15.5 g/dl (13.5-17.5); LYMPH # 1.4 10^3/uL (1.5-5.0); LYMPH % 24.6 % (24.0-44.0); MEAN CORPUSCULAR HEMOGLOBIN 31.4 pg (27.0-33.0); MEAN CORPUSCULAR HGB CONC 33.8 g/dl (32.0-36.5); MEAN CORPUSCULAR VOLUME 92.9 fl (80.0-96.0); MONO # 0.7 10^3/uL (0.0-0.8); NEUTROPHILS # 3.2 10^3/uL (1.5-8.5); NEUTROPHILS % 55.3 % (36.0-66.0); PLATELET COUNT, AUTOMATED 196 10^3/uL (150-450); RED BLOOD COUNT 4.94 10^6/uL (4.30-6.10); WHITE BLOOD COUNT 5.7 10^3/uL (4.0-10.0)
[2023-04-30 17:42] LABS: ERYTHROCYTE SEDIMENTATION RATE 9 mm/hr (0-20)
[2023-04-30 18:00] LABS: C REACTIVE PROTEIN QUANTITATIV < 0.40 MG/DL (<1.0)
[2023-04-30 18:02] LABS: ALBUMIN 3.7 G/DL (3.2-5.2); ALKALINE PHOSPHATASE 62 U/L (46-116); ALT/SGPT 25 U/L (7.0-40); AST/SGOT 17 U/L (<34); BILIRUBIN,TOTAL 0.7 MG/DL (0.3-1.2); BLOOD UREA NITROGEN 22 MG/DL (9-23); CALCIUM LEVEL 8.1 MG/DL (8.3-10.6); CARBON DIOXIDE LEVEL 24 MMOL/L (20-31); CHLORIDE LEVEL 104 MMOL/L (98-107); CREATININE FOR GFR 0.76 MG/DL (0.70-1.30); GLOMERULAR FILTRATION RATE > 60.0 (>49); GLUCOSE, FASTING 292 MG/DL (74-106); POTASSIUM SERUM 4.8 MMOL/L (3.5-5.1); SODIUM LEVEL 135 MMOL/L (136-145); TOTAL PROTEIN 6.1 G/DL (5.7-8.2)
== END ==
LOC: M SFHCCAPE 08:45
PROVIDERS: ATTEND Physician Assistant Medical
DX: M25.50 Pain in unspecified joint (principal); E29.1 Testicular hypofunction

== ENCOUNTER → 2023-08-29 | Outpatient (REF) | payer OTHER ==
[2023-08-29 19:47] LABS: HEMOGLOBIN A1c 11.3 % (4.0-6.0)
[2023-08-29 19:53] LABS: PSA SCREENING 0.68 NG/ML (< 4.00)
[2023-08-29 19:57] LABS: RHEUMATOID FACTOR QUANT < 3.5 IU/ML (<14)
[2023-08-29 19:58] LABS: ALBUMIN 3.5 G/DL (3.2-5.2); ALKALINE PHOSPHATASE 84 U/L (46-116); ALT/SGPT 32 U/L (7.0-40); AST/SGOT 14 U/L (<34); BILIRUBIN,TOTAL 0.8 MG/DL (0.3-1.2); BLOOD UREA NITROGEN 21 MG/DL (9-23); CARBON DIOXIDE LEVEL 24 MMOL/L (20-31); CHLORIDE LEVEL 105 MMOL/L (98-107); CHOLESTEROL LEVEL 172 MG/DL (<200); CHOLESTEROL RISK RATIO 5.65 (<5); CREATININE FOR GFR 0.83 MG/DL (0.70-1.30); GLOMERULAR FILTRATION RATE > 60.0 (>49); GLUCOSE, FASTING 350 MG/DL (74-106); HDL CHOLESTEROL 30.4 MG/DL (>40); LDL CHOLESTEROL 88.2 MG/DL (<100); NON-HDL-C 141.6 MG/DL; POTASSIUM SERUM 4.1 MMOL/L (3.5-5.1); SODIUM LEVEL 137 MMOL/L (136-145); TRIGLYCERIDES LEVEL 267 MG/DL (<150)
[2023-09-02 16:07] LABS: ANA SCREEN, IFA NEGATIVE (NEGATIVE)
== END ==
LOC: M SFHCCAPE 07:49
PROVIDERS: ATTEND Physician Assistant Medical
DX: E11.65 Type 2 diabetes mellitus with hyperglycemia (principal); M25.50 Pain in unspecified joint; E78.2 Mixed hyperlipidemia; Z12.5 Encounter for screening for malignant neoplasm of prostate

== ENCOUNTER → 2023-11-07 | Outpatient (CLI) | payer OTHER | LOC: M SLEEP 20:00 | PROVIDERS: ATTEND Physician Assistant | DX: G47.33 Obstructive sleep apnea (adult) (pediatric) (principal) ==

== ENCOUNTER → 2023-12-17 | Outpatient (REF) | payer OTHER ==
[2023-12-17 18:01] LABS: BASO # 0.1 10^3/uL (0.0-0.2); BASO % 1.4 % (0.0-1.0); EOS # 0.2 10^3/uL (0.0-0.5); EOS % 4.3 % (0.0-3.0); HEMATOCRIT 42.6 % (42.0-52.0); HEMOGLOBIN 14.3 g/dl (13.5-17.5); LYMPH # 1.3 10^3/uL (1.5-5.0); LYMPH % 26.3 % (24.0-44.0); MEAN CORPUSCULAR HEMOGLOBIN 31.5 pg (27.0-33.0); MEAN CORPUSCULAR HGB CONC 33.6 g/dl (32.0-36.5); MEAN CORPUSCULAR VOLUME 93.8 fl (80.0-96.0); MONO # 0.5 10^3/uL (0.0-0.8); MONO % 11.1 % (2.0-8.0); NEUTROPHILS # 2.7 10^3/uL (1.5-8.5); NEUTROPHILS % 56.5 % (36.0-66.0); PLATELET COUNT, AUTOMATED 189 10^3/uL (150-450); RED BLOOD COUNT 4.54 10^6/uL (4.30-6.10); WHITE BLOOD COUNT 4.9 10^3/uL (4.0-10.0)
[2023-12-17 18:33] LABS: ALBUMIN 3.9 G/DL (3.2-5.2); ALKALINE PHOSPHATASE 63 U/L (40-129); ALT/SGPT 26 U/L (7.0-40); AST/SGOT 18 U/L (<34); BILIRUBIN,TOTAL 0.8 MG/DL (0.3-1.2); BLOOD UREA NITROGEN 20 MG/DL (9-23); CALCIUM LEVEL 9.7 MG/DL (8.3-10.6); CARBON DIOXIDE LEVEL 24 MMOL/L (20-31); CHLORIDE LEVEL 110 MMOL/L (98-107); CREATININE FOR GFR 1.06 MG/DL (0.70-1.30); GLOMERULAR FILTRATION RATE > 60.0 (>49); GLUCOSE, FASTING 169 MG/DL (74-106); POTASSIUM SERUM 4.1 MMOL/L (3.5-5.1); SODIUM LEVEL 141 MMOL/L (136-145); TOTAL PROTEIN 6.5 G/DL (5.7-8.2)
== END ==
LOC: M SFHCCAPE 10:48
PROVIDERS: ATTEND Physician Assistant Medical
DX: E11.65 Type 2 diabetes mellitus with hyperglycemia (principal); F41.8 Other specified anxiety disorders; G47.33 Obstructive sleep apnea (adult) (pediatric)

== ENCOUNTER → 2023-12-19 | Outpatient (REF) | payer OTHER ==
[2023-12-19 18:35] LABS: CREATININE, URINE 115.3 MG/DL; MALB URINE SIEMENS < 3.0 MG/L; MAU/CREAT RATIO 2.6 MCG/MG (0.0-30.0)
== END ==
LOC: M SFHCCAPE 16:37
PROVIDERS: ATTEND Physician Assistant Medical
DX: E11.65 Type 2 diabetes mellitus with hyperglycemia (principal)

== ENCOUNTER → 2024-01-08 | Outpatient (CLI) | payer OTHER | LOC: M PLAIMG 09:43 | PROVIDERS: ATTEND Physician Assistant | DX: G31.84 Mild cognitive impairment of uncertain or unknown etiology (principal) ==

== ENCOUNTER → 2024-04-20 | Outpatient (REF) | payer OTHER ==
[2024-04-20 17:42] LABS: ALBUMIN 3.8 G/DL (3.2-5.2); ALKALINE PHOSPHATASE 58 U/L (40-129); ALT/SGPT 28 U/L (7.0-40); AST/SGOT 18 U/L (<34); BILIRUBIN,TOTAL 0.6 MG/DL (0.3-1.2); BLOOD UREA NITROGEN 22 MG/DL (9-23); CARBON DIOXIDE LEVEL 28 MMOL/L (20-31); CHLORIDE LEVEL 105 MMOL/L (98-107); CHOLESTEROL LEVEL 137 MG/DL (<200); CHOLESTEROL RISK RATIO 3.88 (<5); CREATININE FOR GFR 0.84 MG/DL (0.70-1.30); GLOMERULAR FILTRATION RATE > 60.0 (>49); GLUCOSE, FASTING 182 MG/DL (74-106); HDL CHOLESTEROL 35.3 MG/DL (>40); LDL CHOLESTEROL 70.1 MG/DL (<100); NON-HDL-C 101.7 MG/DL; SODIUM LEVEL 141 MMOL/L (136-145); TOTAL PROTEIN 6.5 G/DL (5.7-8.2); TRIGLYCERIDES LEVEL 158 MG/DL (<150)
[2024-04-20 17:48] LABS: HEMOGLOBIN A1c 7.3 % (4.0-6.0)
== END ==
LOC: M SFHCCAPE 09:07
PROVIDERS: ATTEND Physician Assistant Medical
DX: E11.65 Type 2 diabetes mellitus with hyperglycemia (principal); E78.2 Mixed hyperlipidemia

== ENCOUNTER → 2024-08-11 | Outpatient (REF) | payer OTHER ==
[2024-08-11 19:00] LABS: HEMATOCRIT 47.2 % (42.0-52.0); HEMOGLOBIN 15.7 g/dl (13.5-17.5); MEAN CORPUSCULAR HEMOGLOBIN 30.6 pg (27.0-33.0); MEAN CORPUSCULAR HGB CONC 33.3 g/dl (32.0-36.5); PLATELET COUNT, AUTOMATED 225 10^3/uL (150-450); RED BLOOD COUNT 5.13 10^6/uL (4.30-6.10)
[2024-08-11 19:04] LABS: ALBUMIN 4.4 G/DL (3.2-5.2); BILIRUBIN,TOTAL 0.8 MG/DL (0.3-1.2); CALCIUM LEVEL 10.2 MG/DL (8.3-10.6); CHOLESTEROL RISK RATIO 4.98 (<5); CREATININE FOR GFR 0.97 MG/DL (0.70-1.30); GLOMERULAR FILTRATION RATE 88.8 (>49); HDL CHOLESTEROL 34.9 MG/DL (>40); LDL CHOLESTEROL 116.1 MG/DL (<100); NON-HDL-C 139.1 MG/DL; POTASSIUM SERUM 4.2 MMOL/L (3.5-5.1); PSA SCREENING 0.77 NG/ML (< 4.00); TOTAL PROTEIN 7.1 G/DL (5.7-8.2)
[2024-08-17 09:07] LABS: TESTOSTERONE %FREE+WEAKLY BOUN 30.9 % (9.0-46.0); TESTOSTERONE FREE+WEAKLY BOUND 55.9 ng/dL (40.0-250.0); TESTOSTERONE TOTAL 181 ng/dL (264-916)
== END ==
LOC: M LABDRWCV 17:30
PROVIDERS: ATTEND Internal Medicine
DX: E29.1 Testicular hypofunction (principal)

== ENCOUNTER → 2024-10-28 | Outpatient (REF) | payer OTHER ==
[2024-10-28 19:05] LABS: PSA SCREENING 0.83 NG/ML (< 4.00)
[2024-10-28 19:06] LABS: ALT/SGPT 29 U/L (7.0-40); AST/SGOT 21 U/L (<34); CALCIUM LEVEL 9.7 MG/DL (8.3-10.6); CARBON DIOXIDE LEVEL 27 MMOL/L (20-31); CHLORIDE LEVEL 105 MMOL/L (98-107); CREATININE FOR GFR 0.87 MG/DL (0.70-1.30); GLOMERULAR FILTRATION RATE > 90.0 (>49); POTASSIUM SERUM 4.2 MMOL/L (3.5-5.1); SODIUM LEVEL 143 MMOL/L (136-145)
[2024-10-28 19:08] LABS: BASO # 0.1 10^3/uL (0.0-0.2); BASO % 1.6 % (0.0-1.0); EOS # 0.2 10^3/uL (0.0-0.5); EOS % 3.6 % (0.0-3.0); LYMPH # 1.4 10^3/uL (1.5-5.0); LYMPH % 28.8 % (24.0-44.0); MONO # 0.6 10^3/uL (0.0-0.8); MONO % 11.1 % (2.0-8.0); NEUTROPHILS # 2.7 10^3/uL (1.5-8.5); NEUTROPHILS % 54.5 % (36.0-66.0); PLATELET COUNT, AUTOMATED 214 10^3/uL (150-450)
[2024-10-28 19:46] LABS: ESTIMATED AVERAGE GLUCOSE 166.0 MG/DL (60-110)
== END ==
LOC: M SFHCCAPE 09:33
PROVIDERS: ATTEND Physician Assistant Medical
DX: Z00.00 Encounter for general adult medical examination without abnormal findings (principal); K76.0 Fatty (change of) liver, not elsewhere classified; E11.65 Type 2 diabetes mellitus with hyperglycemia; Z12.5 Encounter for screening for malignant neoplasm of prostate

== ENCOUNTER → 2024-12-09 | Outpatient (REF) | payer OTHER ==
[2024-12-19 16:53] LABS: TESTOSTERONE FREE (DIRECT) 182.2 pg/mL (35.0-155.0); TESTOSTERONE TOTAL FOR T&D 709.0 ng/dL (250-1100)
== END ==
LOC: M LABDRWCV 16:57
PROVIDERS: ATTEND Internal Medicine
DX: E29.1 Testicular hypofunction (principal)

== ENCOUNTER → 2025-02-01 | Outpatient (REF) | payer OTHER | LOC: M SFHCCAPE 08:49 | PROVIDERS: ATTEND Physician Assistant Medical | DX: S30.861A Insect bite (nonvenomous) of abdominal wall, initial encounter (principal) ==